=== PATIENT | female | born 1945 | race Caucasian/White ===

== ENCOUNTER 2016-12-03 10:37 | Emergency (ER) | payer MEDICARE, OTHER ==
--- NOTE | 2016-12-03 11:35 | ERNOTE ---
Back Pain ER HPI Time Seen by Provider: 12/03/16 11:14 Source: patient, family Exam Limitations: no limitations Immunizations: IMMUNIZATION HX Immunizations Up to Date Yes History of Influenza Vaccine No Hx Pneumococcal Vaccination No Allergies/Adverse Reactions: Allergies codeine Allergy (Severe, Verified 12/03/16 10:50) Anaphylaxis lidocaine Allergy (Intermediate, Verified 12/03/16 10:50) THROAT SWELLING procaine HCl [From Novocain] Allergy (Intermediate, Verified 12/03/16 10:50) THROAT SWELLING Home Medications: HOME MEDICATIONS traZODone HCL [Desyrel] 100 mg PO HS 07/04/13 [Last Taken 04/14/16 21:00] Albuterol Sulfate [Proair Hfa] 1 puff IH Q6H PRN 01/21/14 [Last Taken Unknown] Venlafaxine HCl [Effexor Xr] 300 mg PO DAILY 01/21/14 [Last Taken 04/15/16] ALPRAZolam [Xanax] 0.25 mg PO BID PRN #45 tablet 04/17/16 [Last Taken Unknown] Cholecalciferol [Vitamin D] 2,000 unit PO DAILY@1200 capsule 04/17/16 [Last Taken Unknown] Clopidogrel Bisulfate [Plavix] 75 mg PO DAILY #90 tablet 04/17/16 [Last Taken Unknown] Losartan/Hydrochlorothiazide [Losartan-Hctz 100-12.5 mg Tab] 1 each PO DAILY # 90 tablet 04/17/16 [Last Taken Unknown] Simvastatin [Zocor] 10 mg PO HS tablet 04/17/16 [Last Taken Unknown] amLODIPine BESYLATE [Norvasc] 10 mg PO DAILY@2100 #90 tablet 04/17/16 [Last Taken Unknown] Aspirin/Calcium Carbonate/Mag [Aspirin Buffered 325 mg Tab] 325 mg PO DAILY [Last Taken Unknown] Pantoprazole Sodium 40 mg PO DAILY #30 tablet. 06/20/16 [Last Taken Unknown] Narrative: PAtient is here for two concerns back pain and headache, she has had both for about a week the headache is intermittent every morning, usually resolves after 1-2 hours, she sometimes takes pain medications, denies any neurological deficits. The back pain is thoracic, denies any unjury, has a remote history of compression fracture - Patient's Past Medical History Patient History - Medical: Anemia, Anxiety, Depression Patient History - Cardiac/Respiratory: Hypertension, Hyperlipidemia, Pneumonia Patient History - Cancer: No Hx of Cancer Patient History - Surgical Procedures: Appendectomy, Back Surgery, Cholecystectomy, Total Knee Replacement, Tubal Ligation Patient History - Other: None - Family History Sister Family History - Medical: Alzheimer's Disease, Dementia Family History - Cardiac/Respiratory: No pertinent hx Mother Family History - Cardiac/Respiratory: COPD Father Family History - Medical: Diabetes Type 2 Family History - Cardiac/Respiratory: Cardiac Arrest, Myocardial Infarction Brothers Family History - Medical: Diabetes Type 1 - Social History Living Situations: home Abuse History: No History of abuse Psych History: Hx of Anxiety, Hx of Depression Alcohol Use: occasionally Drug Use: none - Immunizations Immunizations Up to Date: Yes Hx Pneumococcal Vaccination: No History of Influenza Vaccine: No Physical Exam - Physical Exam General Appearance: Present: wd/wn, alert, no apparent distress, anxious Eye Exam: Normal inspection: bilateral, PERRL: bilateral, EOMI: bilateral Ears, Nose, Throat: Present: normal ENT inspection, hearing grossly normal, normal pharynx Neck: Present: normal inspection, nontender, full range of motion Respiratory: Present: no respiratory distress, normal breath sounds, no accessory muscle use, lungs clear Cardiovascular/Chest: Present: regular rate, rhythm, no murmur Gastrointestinal/Abdominal: Present: nontender, nondistended, soft Back Exam: Present: normal inspection, vertebral tenderness - lower thoracic spine Extremity Exam: Present: normal inspection, normal range of motion Neurological Exam: Present: alert, oriented, normal mood/affect, no motor/ sensory deficits, 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 Vital Signs: Vital Signs 12/03/16 10:46 Temperature 36.4 C L Pulse Rate 78 Respiratory 12 Rate Blood Pressure 155/92 O2 Sat by Pulse 93 Oximetry - X-Ray X-Ray #1 X-Ray: thoracic - old kyphoplasty, DJD, no acute changes Interpretation: Reviewed by me - CT/Ultrasound CT/Ultrasound Narrative: CT head: atrophy, no acute findings - Progress/Reassessment Chief Complaint: Back Pain Progress Note-Subjective: 12/03/16 12:21 discussed results with patient and family, headache better patient now states that she has been under a lot of stress as her brother recently Departure Clinical Impression: Back pain of thoracolumbar region Headache, tension-type Qualifiers: Headache chronicity pattern: episodic headache Intractability: not intractable Qualified Code(s): G44.219 - Episodic tension-type headache, not intractable - Departure Disposition: Home self-care Condition: Good Instructions: Tension Headache, [id number] Additional Instructions: call your doctor for a follow up appointment make sure to bring all your medication bottles to double check what you should be taking Referrals: Corey Walter MD [Primary Care Provider] -
--- OUTSIDE RECORDS SUMMARY | 2016-12-03 11:39 | XMS REPORT | Continuity of Care Document ---
:1945 Author Organization [facility] ([facility]) Address [address] [place] [address] Phone [phone] Care Team Providers Name Role Phone Kvng Morrow Primary Care Provider [phone] Source Comments This disclosure is being made pursuant to the Care Everywhere program, applicable federal and state laws, and may not contain all informaitonavailable regarding this patient.[facility] ([facility]) Active Allergies and Adverse Reactions Allergen Noted Date Severity Reactions Comments Codeine Nausea & Vomiting,Stomach Pain Procaine Upper Airway Edema,Respiratory Distress Current Medications Prescription Sig. Disp. Refills Start Date End Date Status hydrALAZINE 10 mg tablet Take 10 mg by Active mouth 3 times daily. enalapril 20 mg tablet Take 30 mg by Active mouth 2 times daily. simvastatin 10 mg tablet Take 10 mg by Active mouth every evening. atenolol 100 mg tablet Take 100 mg by Active mouth 2 times daily. venlafaxine 150 mg XR Take 150 mg by Active tablet mouth 2 times daily. traZODone 150 mg tablet Take 150 mg by Active mouth at bedtime. albuterol (PROAIR HFA) Use 2 Puffs by 1 Inhaler 03/10/2013 Active 90 mcg/Actuation inhaler inhalation every 6 hours as needed. Indications: BRONCHOSPASM PREVENTION fluticasone 50 use 2 Sprays into 1 Bottle 11 03/10/2013 Active mcg/Actuation nasal the nose daily. 2 spray sprays each nostril daily Indications: ALLERGIC RHINITIS omeprazole 20 mg Take 1 Cap by 30 Cap 0 04/09/2013 Active extended release capsule mouth daily. Indications: duodenitis hydrochlorothiazide 25 Take 25 mg by Active mg tablet mouth daily. naproxen 500 mg tablet Take 500 mg by Active mouth 3 times daily with meals. amLODIPine 5 mg tablet Take 1 Tab by 30 Tab 11 04/28/2013 Active mouth daily. Indications: HYPERTENSION mometasone (ASMANEX) 220 Use 2 Puffs by 2 Inhaler 6 08/13/2013 Active mcg (120 doses) inhaler inhalation 2 times daily. Indications: ASTHMA PREVENTION Active Problems Problem Noted Date Diastolic dysfunction 04/28/2013 Duodenitis 04/10/2013 SOB (shortness of breath) 03/13/2013 Colon polyp 06/20/2012 Other specified disorders of pancreatic internal secretion 02/11/2009 Pain in joint, lower leg 01/12/2009 Ganglion, unspecified 04/08/2008 Painful respiration 04/01/2007 Other specified general medical examination 06/24/2006 Pain in joint, pelvic region and thigh 06/24/2006 Abdominal pain, right upper quadrant 06/24/2006 Unspecified sinusitis (chronic) 02/10/2003 Special screening for malignant neoplasms, colon 08/12/2002 Pre-operative cardiovascular examination 10/15/2000 Preoperative examination, unspecified 10/15/2000 Sarcoidosis 10/15/2000 HYPERTENSION NOS 10/15/2000 Immunizations Name Dates Previously Given Next Due Influenza, PF 08/21/2011 Influenza, unspecified 07/14/2012,08/03/1998,08/13/1995 Pneumococcal, unspecified 10/14/1997 Social History Tobacco Use Types Packs/Day Years Used Date Former Smoker 0.25 3 Quit: 10/14/1971 Smokeless Tobacco: Never Used Tobacco Cessation:Counseling Given: Yes Comments: Last Filed Vital Signs Vital Sign Reading Time Taken Blood Pressure 152/79 04/28/2013 8:49 AM CDT Pulse 55 04/28/2013 8:49 AM CDT Temperature 36.1 C (97 F) 04/09/2013 2:38 PM CDT Respiratory Rate 16 04/09/2013 2:38 PM CDT Height 1.524 m (5') 04/09/2013 11:27 AM CDT Weight 71 kg (156 lb 8.4 oz) 04/28/2013 8:49 AM CDT Body Mass Index 30.57 04/28/2013 8:49 AM CDT Oxygen Saturation 95% 04/28/2013 8:49 AM CDT Plan of Care Health Maintenance Due Date Last Done Comments HCV Screening 1945 Hepatitis B Vaccine (1 of 3 1945 - Primary Series) Tdap Vaccine 01/01/1956 Td Vaccine 1962 Colonoscopy 1994 Mammogram 10/15/2001 10/15/2000 Zoster Vaccine 2004 Osteoporosis Screening (DXA 2009 Bone Density) Pneumococcal Vaccine (1 of 2 2009 - PCV13) Lipid Disorder Screening 01/12/2014 01/12/2009, 04/08/2008, 06/24/2006 Influenza Vaccine: Seasonal 05/14/2016 07/14/2012, Additional history exists (#1) 08/21/2011, 08/03/1998 Results from Last 3 Months Not on file
[2016-12-03 12:28] VITALS: BP 152/84
== END 2016-12-03 12:31 | disposition home or self-care (01) ==
LOC: ER 10:37
DX: M54.6 Pain in thoracic spine (principal); G44.219 Episodic tension-type headache, not intractable; I10 Essential (primary) hypertension; E78.5 Hyperlipidemia, unspecified; F41.8 Other specified anxiety disorders

== ENCOUNTER 2017-03-07 10:05 | Emergency (ER) | payer MEDICARE, MEDICAID ==
--- NOTE | 2017-03-07 11:31 | ERNOTE ---
Lower Extremity HPI - General Lower Extremities Pain: foot: right Time Seen by Provider: 03/07/17 11:10 Source: patient, family Exam Limitations: no limitations - Immun/Allergies/Home Medications Immunizations: IMMUNIZATION HX Immunizations Up to Date Yes History of Influenza Vaccine Yes Hx Pneumococcal Vaccination Yes Allergies/Adverse Reactions: Allergies Allergy/AdvReac Type Severity Reaction Status Date / Time codeine Allergy Severe Anaphylaxis Verified 03/07/17 10:21 lidocaine Allergy Intermediate THROAT Verified 03/07/17 10:21 SWELLING procaine HCl [From Novocain] Allergy Intermediate THROAT Verified 03/07/17 10:21 SWELLING Home Medications: HOME MEDICATIONS traZODone HCL [Desyrel] 100 mg PO HS 07/04/13 [Last Taken 04/14/16 21:00] Albuterol Sulfate [Proair Hfa] 1 puff IH Q6H PRN 01/21/14 [Last Taken Unknown] Venlafaxine HCl [Effexor Xr] 300 mg PO DAILY 01/21/14 [Last Taken 04/15/16] ALPRAZolam [Xanax] 0.25 mg PO BID PRN #45 tablet 04/17/16 [Last Taken Unknown] Cholecalciferol [Vitamin D] 2,000 unit PO DAILY@1200 capsule 04/17/16 [Last Taken Unknown] Clopidogrel Bisulfate [Plavix] 75 mg PO DAILY #90 tablet 04/17/16 [Last Taken Unknown] Losartan/Hydrochlorothiazide [Losartan-Hctz 100-12.5 mg Tab] 1 each PO DAILY # 90 tablet 04/17/16 [Last Taken Unknown] Simvastatin [Zocor] 10 mg PO HS tablet 04/17/16 [Last Taken Unknown] amLODIPine BESYLATE [Norvasc] 10 mg PO DAILY@2100 #90 tablet 04/17/16 [Last Taken Unknown] Aspirin/Calcium Carbonate/Mag [Aspirin Buffered 325 mg Tab] 325 mg PO DAILY [Last Taken Unknown] Sulfamethoxazole/Trimethoprim [Bactrim Ds] 1 tab PO BID #20 tab 03/07/17 [Last Taken Unknown] - History of Present Illness Narrative: Patient is here today because she is concerned about a wound on her right foot. About two weeks ago she stepped on glass in her kitchen and sustained a cut, she has followed up with Dr Turk last week who put her on a "pill that didn't help". She had an MRI done three days ago, she has had increasing pain and drainage. This morning she was seen to have orthotics fit and there was a concern that her foot look infected. 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 Absent: fever ENT: Present: nose congestion. Absent: sore throat Respiratory: Absent: shortness of breath, cough Cardiology: Absent: chest pain Gastrointestinal/Abdominal: Absent: nausea, vomiting, abdominal pain Genitourinary: Present: no symptoms reported Musculoskeletal: Present: See HPI Neurological: Present: headache - slight. Absent: weakness, numbness, tingling - Patient's Past Medical History Patient History - Medical: Anemia, Anxiety, Depression Patient History - Cardiac/Respiratory: Hypertension, Hyperlipidemia, Pneumonia Patient History - Cancer: No Hx of Cancer Patient History - Surgical Procedures: Appendectomy, Back Surgery, Cholecystectomy, Total Knee Replacement, Tubal Ligation Patient History - Other: None LMP (females 10-50): Menopausal - Family History Sister Family History - Medical: Alzheimer's Disease, Dementia Family History - Cardiac/Respiratory: No pertinent hx Mother Family History - Cardiac/Respiratory: COPD Father Family History - Medical: Diabetes Type 2 Family History - Cardiac/Respiratory: Cardiac Arrest, Myocardial Infarction Brothers Family History - Medical: Diabetes Type 1 - Social History Living Situations: home Abuse History: No History of abuse Psych History: Hx of Anxiety, Hx of Depression Smoking Status: Former smoker Alcohol Use: occasionally Drug Use: none - Immunizations Immunizations Up to Date: Yes Hx Pneumococcal Vaccination: Yes History of Influenza Vaccine: Yes Physical Exam - Physical Exam General Appearance: Present: wd/wn, alert, no apparent distress Respiratory: Present: no respiratory distress, normal breath sounds, lungs clear Cardiovascular/Chest: Present: regular rate, rhythm, no murmur Peripheral Pulses: N=norm/S=strong/W=weak/B=bound/A=absent: Dorsalis-pedis (R): Normal Extremity Exam: Present: normal except - - plantar side of right first metatarsal headabout 3mm wound, draining serous fluid, mild surrounding erythema , no lymphangitis, tender to touch, sensation intact Neurological Exam: Present: alert, oriented, normal mood/affect Skin Exam: Present: normal color, warm/dry ED Progress - Results and Orders Patient's Lab Results:: I have reviewed the patient's lab results. - Vital Signs Patient's Vital Signs:: I have reviewed the patient's vital signs. Vital Signs: Vital Signs 03/07/17 10:11 Temperature 35.9 C L Pulse Rate 73 Respiratory 15 Rate Blood Pressure 133/61 O2 Sat by Pulse 99 Oximetry - CT/Ultrasound CT/Ultrasound Narrative: reviewed out patient MRI from 03/04 IMPRESSION: 1. No definite signs of first metatarsal head osteomyelitis. 2. Abnormal marrow signal and articular surface collapse of the second metatarsal head as discussed above. Consider sequela of avascular necrosis versus osteomyelitis. Nonspecific second metatarsophalangeal joint joint effusion as above. Correlate clinically. 3. No definite signs of soft tissue abscess. 4. Additional comments as above. - Progress/Reassessment Chief Complaint: Foot Injury/Pain Progress Note-Subjective: 03/07/17 12:23 per [place] chart patient was on keflex in January, no recent antibiotic use, unable to get hold of Dr Turk or Dr Walter 03/07/17 12:43 discussed results and plan with patient and daughter, most recent wound culture from a couple of years ago showed MRS sensitive to bactrim Departure Clinical Impression: Foot ulcer, right Qualifiers: Non-pressure ulcer stage: unspecified non-pressure ulcer stage Qualified Code(s ): L97.519 - Non-pressure chronic ulcer of other part of right foot with unspecified severity - Departure Disposition: Home self-care Condition: Good Additional Instructions: take over the counter tylenol (325mg) two every 4-6 hours as needed for pain, keep the wound covered and padded, try to stay off your foot as much as possible Referrals: Corey Walter MD [Primary Care Provider] - Airam Turk DPM [Staff Physician] - (as scheduled) Prescriptions: Sulfamethoxazole/Trimethoprim [Bactrim Ds] 1 tab PO BID #20 tab
--- OUTSIDE RECORDS SUMMARY | 2017-03-07 11:39 | XMS REPORT | Continuity of Care Document ---
:1945 Author Organization [facility] ([facility]) Address [address] [place] [address] Phone [phone] Care Team Providers Name Role Phone Kvng Morrow Primary Care Provider [phone] Source Comments This disclosure is being made pursuant to the Care Everywhere program, applicable federal and state laws, and may not contain all informaitonavailable regarding this patient.[facility] ([facility]) Active Allergies and Adverse Reactions Allergen Noted [...] HFA) Use 2 Puffs by 1 Inhaler 11 03/10/2013 Active 90 mcg/Actuation inhaler inhalation every [...]
[2017-03-07 11:41] LABS: Hematocrit 39.7 % (37.0-47.0); Hemoglobin 13.7 gm/dL (12.5-16.0); Mean Cell Volume 84.3 fl (78-100); Mean Corpuscular Hemoglobin 29.1 pg (27-31); Mean Corpuscular Hgb Conc 34.5 g/dl (32-36); Mean Platelet Volume 8.9 fl (6.0-9.5); Neutrophil # 2.9 K/mm3 (1.3-6.0); Platelet Count 279 K/mm3 (150-450); Red Blood Count 4.71 M/mm3 (4.2-5.4); Red Cell Distribution Width 12.6 % (11.5-14.0); White Blood Count 4.6 K/mm3 (4.0-10.5)
[2017-03-07 11:56] LABS: Albumin * 3.6 gm/dl (3.4-5.0); Anion Gap 11.7 mmol/L (6.8-13.8); BUN/Creatinine Ratio 13.3 (9.0-21.6); Bilirubin, Total 0.4 mg/dL (0.0-1.1); CRP 0.5 mg/dL (0.0-0.9); Ca. Corrected For Albumin 9.1 mg/dL (8.4-10.2); Calcium * 9.1 mg/dL (7.9-10.9); Carbon Dioxide 28.1 mmol/L (24-32.6); Potassium 3.8 mmol/L (3.4-4.6); Total Protein 7.3 gm/dL (6.2-8.2)
[2017-03-07] MEDS ORDERED: ACETAMINOPHEN 325 MG TABLET PO ONE (12:43)
[2017-03-07] MEDS ORDERED: ACETAMINOPHEN 325 MG TABLET ONE (12:43)
[2017-03-07 13:05] VITALS: BP 151/88
== END 2017-03-07 12:56 | disposition home or self-care (01) ==
LOC: ER 10:05
DX: L97.519 Non-pressure chronic ulcer of other part of right foot with unspecified severity (principal); F41.9 Anxiety disorder, unspecified; I10 Essential (primary) hypertension; E78.5 Hyperlipidemia, unspecified; F32.9 Major depressive disorder, single episode, unspecified; Z87.891 Personal history of nicotine dependence

== ENCOUNTER 2017-04-13 20:46 | Observation (INO) | payer MEDICARE, MEDICAID ==
[2017-04-13] MEDS ORDERED: VANCOMYCIN HCL 1 GM in DEXTROSE 5 % IN WATER 250 ML IV ONE ×2 (21:11)
[2017-04-13] MEDS ORDERED: MORPHINE SULFATE 4 MG/ML SYRG IV ONE (21:11)
[2017-04-13 21:27] LABS: Hematocrit 37.1 % (37.0-47.0); Hemoglobin 12.8 gm/dL (12.5-16.0); Mean Cell Volume 84.1 fl (78-100); Mean Corpuscular Hgb Conc 34.5 g/dl (32-36); Mean Platelet Volume 8.8 fl (6.0-9.5); Neutrophil # 6.3 K/mm3 (1.3-6.0); Neutrophil % 73.5 % (42-75.0); Platelet Count 256 K/mm3 (150-450); Red Blood Count 4.41 M/mm3 (4.2-5.4); Red Cell Distribution Width 12.6 % (11.5-14.0); White Blood Count 8.5 K/mm3 (4.0-10.5)
[2017-04-13 21:35] LABS: Anion Gap 12.5 mmol/L (6.8-13.8); BUN/Creatinine Ratio 10.1 (9.0-21.6); Carbon Dioxide 26.5 mmol/L (24-32.6); Estimated Creat Clear 27.6
[2017-04-13] MEDS ORDERED: MORPHINE SULFATE 4 MG/ML SYRG ONE (21:36)
[2017-04-13] MEDS: NORMAL SALINE 1,000 ML IV PRN (21:44)
[2017-04-13] MEDS ORDERED: ONDANSETRON HCL/PF 2 MG/ML VIAL ONE (22:35)
--- NOTE | 2017-04-13 22:35 | ERNOTE ---
Lower Extremity HPI - Narrative Date of Service: 04/13/17 - General Lower Extremities Pain: foot: right Time Seen by Provider: 04/13/17 21:10 Source: patient, family Exam Limitations: no limitations - Immun/Allergies/Home Medications Immunizations: IMMUNIZATION HX Immunizations Up to Date Yes History of Influenza Vaccine Yes Hx Pneumococcal Vaccination Yes Allergies/Adverse Reactions: Allergies Allergy/AdvReac Type Severity Reaction Status Date / Time codeine Allergy Severe Anaphylaxis Verified 03/07/17 10:21 lidocaine Allergy Intermediate THROAT Verified 03/07/17 10:21 SWELLING procaine HCl [From Novocain] Allergy Intermediate THROAT Verified 03/07/17 10:21 SWELLING Home Medications: HOME MEDICATIONS Albuterol Sulfate [Proair Hfa] 1 puff IH Q6H PRN 01/21/14 [Last Taken Unknown] Venlafaxine HCl [Effexor Xr] 300 mg PO DAILY 01/21/14 [Last Taken 04/15/16] ALPRAZolam [Xanax] 0.25 mg PO BID PRN #45 tablet 04/17/16 [Last Taken Unknown] Cholecalciferol [Vitamin D] 2,000 unit PO DAILY@1200 capsule 04/17/16 [Last Taken Unknown] Clopidogrel Bisulfate [Plavix] 75 mg PO DAILY #90 tablet 04/17/16 [Last Taken Unknown] Losartan/Hydrochlorothiazide [Losartan-Hctz 100-12.5 mg Tab] 1 each PO DAILY # 90 tablet 04/17/16 [Last Taken Unknown] Simvastatin [Zocor] 10 mg PO HS tablet 04/17/16 [Last Taken Unknown] amLODIPine BESYLATE [Norvasc] 10 mg PO DAILY@2100 #90 tablet 04/17/16 [Last Taken Unknown] Aspirin/Calcium Carbonate/Mag [Aspirin Buffered 325 mg Tab] 325 mg PO DAILY [Last Taken Unknown] Sulfamethoxazole/Trimethoprim [Bactrim Ds] 1 tab PO BID #20 tab 03/07/17 [Last Taken Unknown] HYDROcodone/ACETAMINOPHEN [Lortab 5-325 mg Tablet] 1 each PO Q6H PRN #12 tablet 04/13/17 [Last Taken Unknown] - History of Present Illness Narrative: This is a 71-year-old female with a 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 The patient has had a spot on the base of her right foot which has been open and draining for several months. She has seen her family doctor for this and has been taking Bactrim. The patient states that over the last 24 hours she has noticed a "explosion of redness at" on her foot. She said it is streaking up toward ankle. She says that she is having increased pain. Patient says that this is how her body reacts when she has an infection that is getting out of control. The patient denies nausea vomiting fever chills chest pain shortness of breath or any other somatic complaints Occurred: last week Location of Incident: other - no Method of Injury: Reports: other - states she may have gotten a piece of glass in it several months ago but it hasn't healed since then Associated Symptoms: Reports: none Other Injuries: Reports: none Prior Treament: Reports: treated by physician, other - as been on antibiotics. Review of Systems - Narrative Narrative: The patient has no other somatic symptoms other than those mentioned in the history of present illness. - Review of Systems Constitutional: Present: no symptoms reported EYE: Present: no symptoms reported ENT: Present: no symptoms reported Respiratory: Present: no symptoms reported Cardiology: Present: no symptoms reported Gastrointestinal/Abdominal: Present: no symptoms reported Musculoskeletal: Present: other - redness and swelling to the right foot Skin: Present: See HPI Neurological: Present: no symptoms reported Endocrine: Present: no symptoms reported Hematologic/Lymphatic: Present: no symptoms reported Psych: Present: no symptoms reported All Other Systems: All systems neg except as marked - Patient's Past Medical History Patient History - Medical: Anemia, Anxiety, Depression Patient History - Cardiac/Respiratory: Hypertension, Hyperlipidemia, Pneumonia Patient History - Cancer: No Hx of Cancer Patient History - Surgical Procedures: Appendectomy, Back Surgery, Cholecystectomy, Total Knee Replacement, Tubal Ligation, Other Patient History - Other: None - Family History Sister Family History - Medical: Alzheimer's Disease, Dementia Family History - Cardiac/Respiratory: No pertinent hx Mother Family History - Cardiac/Respiratory: COPD Father Family History - Medical: Diabetes Type 2 Family History - Cardiac/Respiratory: Cardiac Arrest, Myocardial Infarction Brothers Family History - Medical: Diabetes Type 1 - Social History Living Situations: home Abuse History: No History of abuse Psych History: Hx of Anxiety, Hx of Depression Smoking Status: Former smoker Have you smoked in the past 12 months: No Do you dip or chew tobacco: No Alcohol Use: occasionally Drug Use: none - Immunizations Immunizations Up to Date: Yes Hx Pneumococcal Vaccination: Yes History of Influenza Vaccine: Yes Physical Exam - Physical Exam General Appearance: Present: wd/wn, alert, mild distress - mild pain distress Eye Exam: Normal inspection: bilateral Ears, Nose, Throat: Present: normal ENT inspection Neck: Present: normal inspection, nontender Respiratory: Present: no respiratory distress, lungs clear Cardiovascular/Chest: Present: regular rate, rhythm, no murmur Gastrointestinal/Abdominal: Present: normal bowel sounds, nontender Extremity Exam: Present: normal inspection Neurological Exam: Present: alert, oriented Skin Exam: Present: other - the patient has a small ulceration on the base of her right foot. This is on the great toe eminence plantar aspect. There is erythema on the plantar aspect of the foot as well as on the dorsum up towards the proximal tarsal bones. It does not quite across the ankle joint. It is warm. There is no signs of fluctuance or thickening Lymphatic Exam: Present: no adenopathy ED Progress - Date and Time Seen: Date and Time: 04/13/17 23:23 She says that the pain is better after the pain medicine but she is having nausea. Zofran given. She is being assessed by the hospital doctor. I would prefer that she receive antibiotics overnight and be reassessed in the morning however I think sending her home on by mouth antibiotics with the understanding that she would return immediately tomorrow if she is not getting better could work. - Results and Orders Patient's Lab Results:: I have reviewed the patient's lab results. - Vital Signs Patient's Vital Signs:: I have reviewed the patient's vital signs. Vital Signs: Vital Signs 04/13/17 04/13/17 21:07 21:50 Temperature 37.0 C 36.9 C Pulse Rate 95 92 Respiratory 18 16 Rate Blood Pressure 143/86 139/84 O2 Sat by Pulse 98 99 Oximetry - Progress/Reassessment Chief Complaint: Lower Extremity Pain/ Injury Progress Note-Subjective: 04/13/17 23:33 No significant change in the degree of redness. No progression but no improvement Departure Clinical Impression: Cellulitis and abscess of foot Clinical Impression: (Ruled Out): Leg pain - Departure Disposition: [facility] Condition: Good Referrals: Corey Walter MD [Primary Care Provider] - Prescriptions: HYDROcodone/ACETAMINOPHEN [Lortab 5-325 mg Tablet] 1 each PO Q6H PRN #12 tablet PRN Reason: Pain
[2017-04-13] MEDS ORDERED: ONDANSETRON HCL/PF 2 MG/ML VIAL IV ONE (22:41)
--- NOTE | 2017-04-14 00:32 | HP ---
Chief Complaint - Chief Complaint Date of Service: 04/13/17 Time of Service: 23:48 Chief Complaint: "Wound on RT foot, Redness". Source of HPI- Pt; reliable, pt' s daughter, ER Provider. History of Present Illness: Mrs. Fowler is a 71-yr-old [place] pt of Dr. Corey Walter with a PMH of: Anxiety , Depression, Diverticulosis, GERD, GI Bleed, HLD, HTN, Osteoarthritis, Sarcoidodis & TIA. The pt reports that she has had a chronic wound on the bottom of the RT foot for the last 3-4 months and is being followed by Dr. Turk. Today, she noticed that some redness was developing on the top part of the RT foot. She was worried about developing infection that can lead to amputation as her LT foot great toe has been amputated in the past, due to MRSA infection & therefore chose to come to the [facility] ER. She denies fevers and chills. According to the [facility] records, she was seen by Dr. Turk on 02/01/17 for the wound and was noted to have erythema on the dorsal part of the RT foot She was started on Kerflex 500mg BID x 10 days. She was seen again on 02/21/17 and the wound was determined to be stable and she had debridement done. An MRI of the foot was done on 03/04/17 and there was no sign of Osteomyelitis. On , she presented to the [facility] ER with complaints of pain and drainage on the same foot/wound. It was noted to have serous drainage and mild Erythema by the ERP. She was discharged from the ED on bactrim x 10 days as the previous wound culture from the the LT foot 2 yrs ago had shown she had MRSA, which was sensitive to Bactrim. During evaluation at the ED tonight, the CBC and BMP was unremarkable. The X-ray of the foot did not have any findings to suggest Osteomyelitis or gas gangrene. V.S were normal. On physical examination she is alert and in no distress.There is erythema on the the dorsal part of Rt foot which is hot to touch. She denies pain unless she is standing on the extremity.The wound on the plantar aspect has a 3mm opening with minimal purulent/yellow drainage. She will be admitted under observation status in order to reassess if her Cellulitis will respond to parental antibiotic treatment given the already elevated CRP/ESR of:17.8/33. This will also guide the decision to be discharged home or if she will require in-patient admission. - Patient's Past Medical History Patient History - Medical: Anemia, Anxiety, Depression, GERD, Other - Sarcoidosis. Patient History - Cardiac/Respiratory: Hypertension, Hyperlipidemia, Pneumonia Patient History - Cancer: No Hx of Cancer Patient History - Surgical Procedures: Appendectomy, Back Surgery, Cholecystectomy, Total Knee Replacement, Tubal Ligation, Other Patient History - Other: None - Family History Sister Family History - Medical: Alzheimer's Disease, Dementia Family History - Cardiac/Respiratory: No pertinent hx Mother Family History - Cardiac/Respiratory: COPD Father Family History - Medical: Diabetes Type 2 Family History - Cardiac/Respiratory: Cardiac Arrest, Myocardial Infarction Brothers Family History - Medical: Diabetes Type 1 - Social History Living Situations: home Abuse History: No History of abuse Psych History: Hx of Anxiety, Hx of Depression Smoking Status: Former smoker Have you smoked in the past 12 months: No Do you dip or chew tobacco: No Alcohol Use: occasionally Drug Use: none - Immunizations Immunizations Up to Date: Yes Hx Pneumococcal Vaccination: Yes History of Influenza Vaccine: Yes Review Of Systems (GEN) - Review of Systems Generalized/Overall Review: Present: Weakness. Absent: Chills, Fever, Fatigue EENTM: Absent: Eye Pain, Blurred Vision Respiratory: Absent: Cough, Shortness of Breath, Orthopnea Cardiac: Absent: Chest Pain, Edema, Palpitations Abdominal: Present: Nausea. Absent: Vomiting, Hematemesis, Abdominal Pain Genitourinary: Absent: Burning, Itching, Urgency, Frequency Musculoskeletal: Absent: Joint Pain, Back Pain, Joint Swelling Neurological: Present: Headache, Anxiety, Depressed, Emotional Problems, Weakness Skin: Present: Dryness. Absent: Lesions, Bruising Endocrine: Present: Intolerance to Cold, Increased Thirst. Absent: Increased Hunger Misc: All systems neg except as marked Immunizations: IMMUNIZATION HX Immunizations Up to Date Yes History of Influenza Vaccine Yes Hx Pneumococcal Vaccination Yes Allergies/Adverse Reactions: Allergies Allergy/AdvReac Type Severity Reaction Status Date / Time codeine Allergy Severe Anaphylaxis Verified 04/14/17 01:13 lidocaine Allergy Intermediate THROAT Verified 04/14/17 01:13 SWELLING procaine HCl [From Novocain] Allergy Intermediate THROAT Verified 04/14/17 01:13 SWELLING Home Medications: HOME MEDICATIONS Albuterol Sulfate [Proair Hfa] 1 puff IH Q6H PRN 01/21/14 [Last Taken Unknown] Venlafaxine HCl [Effexor Xr] 300 mg PO DAILY 01/21/14 [Last Taken 04/15/16] ALPRAZolam [Xanax] 0.25 mg PO BID PRN #45 tablet 04/17/16 [Last Taken Unknown] Cholecalciferol [Vitamin D] 2,000 unit PO DAILY@1200 capsule 04/17/16 [Last Taken Unknown] Clopidogrel Bisulfate [Plavix] 75 mg PO DAILY #90 tablet 04/17/16 [Last Taken Unknown] Losartan/Hydrochlorothiazide [Losartan-Hctz 100-12.5 mg Tab] 1 each PO DAILY # 90 tablet 04/17/16 [Last Taken Unknown] Simvastatin [Zocor] 10 mg PO HS tablet 04/17/16 [Last Taken Unknown] amLODIPine BESYLATE [Norvasc] 10 mg PO DAILY@2100 #90 tablet 04/17/16 [Last Taken Unknown] Aspirin/Calcium Carbonate/Mag [Aspirin Buffered 325 mg Tab] 325 mg PO DAILY [Last Taken Unknown] Sulfamethoxazole/Trimethoprim [Bactrim Ds] 1 tab PO BID #20 tab 03/07/17 [Last Taken Unknown] HYDROcodone/ACETAMINOPHEN [Lortab 5-325 mg Tablet] 1 each PO Q6H PRN #12 tablet 04/13/17 [Last Taken Unknown] Exam - Exam Vital Signs: Vital Signs - Last Taken Temp 36.8 C 04/13/17 23:31 Pulse 88 04/13/17 23:31 Resp 18 04/13/17 23:31 BP 136/78 04/13/17 23:31 Pulse Ox 95 04/13/17 23:31 Constitutional: Present: Alert, Oriented x3, Cooperative, No distress ENT Exam: Present: normal ENT inspection, hearing grossly normal, dry mucous membranes Eye Exam: bilateral eye: normal inspection, PERRL Neck: Present: full range of motion, supple, normal inspection, trachea midline Back Exam: Present: normal inspection, no CVA tenderness Breasts: Present: Exam deferred Respiratory: Present: lungs clear, no accessory muscle use Cardiovascular/Chest: Present: normal peripheral pulses, regular rate, rhythm, no chest tenderness, no edema Abdomen: Present: Normal bowel sounds, soft, nontender /Rectal: Present: Exam deferred Extremity: Present: normal range of motion, non-tender, normal inspection Skin Exam: Present: no cyanosis, other - Erythema on the dorsal part on RT foot. There is a 3mm opening on the the plantar aspect of the RT foot, which small amount of purulent drainage. Neurologic: Present: no motor/sensory deficits, alert, oriented x 3, depressed affect Appearance: Present: appropriate appearance, appropriate insight Eye contact: Present: cooperative, good eye contact, normal speech Diagnostic Studies: Laboratory Results WBC 8.5 K/mm3 (4.0-10.5) 04/13/17 21:20 RBC 4.41 M/mm3 (4.2-5.4) 04/13/17 21:20 Hgb 12.8 gm/dL (12.5-16.0) 04/13/17 21:20 Hct 37.1 % (37.0-47.0) 04/13/17 21:20 MCV 84.1 fl (78-100) 04/13/17 21:20 MCH 29.0 pg (27-31) 04/13/17 21:20 MCHC 34.5 g/dl (32-36) 04/13/17 21:20 RDW 12.6 % (11.5-14.0) 04/13/17 21:20 Plt Count 256 K/mm3 (150-450) 04/13/17 21:20 MPV 8.8 fl (6.0-9.5) 04/13/17 21:20 Immature Gran % (Auto) 0.40 % (0.001-0.429) 04/13/17 21:20 Immature Gran # (Auto) 0.03 K/mm3 (0.000-0.0310) 04/13/17 21:20 Neutrophils % 73.5 % (42-75.0) 04/13/17 21:20 Lymphocytes % 14.1 % (20-51) L 04/13/17 21:20 Monocytes % 9.9 % (0.0-9) H 04/13/17 21:20 Eosinophils % 1.4 % (0.0-3.0) 04/13/17 21:20 Basophils % 0.7 % (0.0-1.0) 04/13/17 21:20 Nucleated RBC % 0.0 k/mm3 (0-1) 04/13/17 21:20 Neutrophils # 6.3 K/mm3 (1.3-6.0) H 04/13/17 21:20 Lymphocytes # 1.2 k/mm3 (1.5-3.5) L 04/13/17 21:20 Monocytes # 0.8 k/mm3 (0.0-1.0) 04/13/17 21:20 Eosinophils # 0.1 k/mm3 (0.0-0.7) 04/13/17 21:20 Absolute Basophils 0.1 k/mm3 (0.0-0.1) 04/13/17 21:20 ESR 33 mm/hr (0-15) H 04/13/17 21:20 Sodium 136 mmol/L (132-142) 04/13/17 21:20 Plasma Sodium 136 mmol/L (130-142) 04/13/17 21:20 Potassium 4.0 mmol/L (3.4-4.6) 04/13/17 21:20 Chloride 101 mmol/L (97-106) 04/13/17 21:20 Carbon Dioxide 26.5 mmol/L (24-32.6) 04/13/17 21:20 Anion Gap 12.5 mmol/L (6.8-13.8) 04/13/17 21:20 BUN 14 mg/dL (3-23) 04/13/17 21:20 Creatinine 1.39 mg/dL (0.4-1.4) D 04/13/17 21:20 Est GFR (Non-Af Amer) 40 mL/min (60-130) L D 04/13/17 21:20 BUN/Creatinine Ratio 10.1 (9.0-21.6) 04/13/17 21:20 Random Glucose 119 mg/dL (70-110) H 04/13/17 21:20 Lactic Acid, Venous 0.8 mmol/L (0.4-1.9) 04/13/17 21:20 Calcium 9.0 mg/dL (7.9-10.9) 04/13/17 21:20 C-Reactive Prot, Quant 17.8 mg/dL (0.0-0.9) H 04/13/17 21:20 Assessment/Plan - Assessment/Plan (1) Cellulitis Assessment: Pt presented with complaints of Erythema and hotness on the RT foot which has a chronic/non-healing wound on the the plantar aspect. The wound was noted to have surrounding hardening skin/tissue but has a 3mm opening with purulent drainage. She has had prior outpatient treatment for similar symptoms on 02/01 with Kerflex and 03/07 with Bactrim. Even though her CBC & BMP was unremarkable and the X-ray lacked any acute findings suggestive of Osteomyelitis or gas gangrene, she was found to have elevated inflammatory marker labs involving CRP/ ESR; 17.8/33. It's reasonable to admit her under observation for re-assessment 12-24hrs of parental antibiotic treatment in order to determine if she can be discharged home on Oral Antibiotics or if she will require full/inpatient hospital admission. She received IV Vancomycin at the ED. Will switch treatment to IV Clindamycin 600mg q 8 hrs and to see if Erythema improves. If it does, she may be discharged on Oral form, & Will make arrangements for her to F/U with podiatry Dr. Turk next week. The wound culture was collected today which will further guide duration and type of antibiotic therapy. Problem: Acute (2) Hyperlipidemia Problem: Chronic (3) Hypertension Problem: Chronic (4) GERD (gastroesophageal reflux disease) Problem: Chronic (5) Depression Problem: Chronic (6) Anxiety Problem: Chronic
[2017-04-14] MEDS: CLINDAMYCIN PHOSPHATE 600 MG in DEXTROSE 5 % IN WATER 100 ML IV SCH ×4 (00:49→08:18)
[2017-04-14] MEDS ORDERED: NORMAL SALINE 250 ML IV PRN (00:54)
[2017-04-14] MEDS ORDERED: ALBUTEROL SULFATE 200 PUFF INHALER IH PRN (01:30)
[2017-04-14] MEDS ORDERED: ALPRAZolam 0.25 MG TABLET PO PRN (01:30)
[2017-04-14] MEDS: NORMAL SALINE 1,000 ML IV PRN (06:21)
[2017-04-14] MEDS ORDERED: ALBUTEROL SULFATE 2.5 MG/3 ML VIAL.NEB IH PRN (07:11)
[2017-04-14] MEDS ORDERED: ASPIRIN 325 MG TABLET.DR PO SCH (09:00)
[2017-04-14] MEDS ORDERED: CLOPIDOGREL BISULFATE 75 MG TABLET PO SCH (09:00)
[2017-04-14] MEDS ORDERED: HYDROCHLOROTHIAZIDE 25 MG TABLET PO SCH (09:00)
[2017-04-14] MEDS ORDERED: LOSARTAN POTASSIUM 50 MG TABLET PO SCH (09:00)
[2017-04-14] MEDS ORDERED: VENLAFAXINE HCL 150 MG CAP.SR.24H PO SCH (09:00)
[2017-04-14] MEDS ORDERED: CHOLECALCIFEROL 1,000 UNIT CAPSULE PO SCH (12:00)
[2017-04-14 13:42] LABS: Hematocrit 33.8 % (37.0-47.0); Hemoglobin 11.5 gm/dL (12.5-16.0); Mean Corpuscular Hemoglobin 29.3 pg (27-31); Mean Platelet Volume 8.7 fl (6.0-9.5); Neutrophil # 4.5 K/mm3 (1.3-6.0); Neutrophil % 72.5 % (42-75.0); Platelet Count 204 K/mm3 (150-450); Red Blood Count 3.93 M/mm3 (4.2-5.4); Red Cell Distribution Width 12.7 % (11.5-14.0); White Blood Count 6.3 K/mm3 (4.0-10.5)
[2017-04-14 14:32] VITALS: BP 136/73
--- NOTE | 2017-04-14 14:59 | DS ---
(1) Cellulitis Diagnosis(s): Ashley is a 71 yo female admitted with cellulitis and recent antibiotic use of bactrim. She was admitted to observation and started on IV clinidamycin. She improved with IV clindamycin and was transitioned to oral clindamycin and discharged to home. Problem: Acute Procedures Performed: none Discharge Disposition: Home self care Disposition: Home self-care Condition: Good Discharge Activity: Activity as tolerated Discharge Diet: General/regular food Referrals: Airam Turk DPM [Staff Physician] - One Week Corey Walter MD [Primary Care Provider] - One Week Problem Oriented Discharge Instructions to Patient/Family: Cellulitis, Adult, [id number] Additional Patient Instructions (free text): F/U with Dr. Turk on 04/19/17 at 10:45 AM. Complete Home Medications List: Complete Home Medication List: Albuterol Sulfate [Proair Hfa] 1 puff IH Q6H PRN 01/21/14 Venlafaxine HCl [Effexor Xr] 150 mg PO DAILY 01/21/14 ALPRAZolam [Xanax] 0.25 mg PO BID PRN #45 tablet 04/17/16 Clopidogrel Bisulfate [Plavix] 75 mg PO DAILY #90 tablet 04/17/16 Simvastatin [Zocor] 10 mg PO HS tablet 04/17/16 amLODIPine BESYLATE [Norvasc] 10 mg PO DAILY@2100 #90 tablet 04/17/16 HYDROcodone/ACETAMINOPHEN [Lortab 5-325 mg Tablet] 1 each PO Q6H PRN #12 tablet 04/13/17 Acetaminophen [Tylenol] 650 mg PO Q6H PRN 04/25/17 Albuterol Sulfate/Ipratropium [Duoneb 2.5-0.5MG/3ML Soln] 3 ml IH QID 04/25/17 Cholecalciferol (Vitamin D3) [Vitamin D] 2,000 unit PO DAILY 04/25/17 Fluticasone Propionate [Flonase] 1 spray NS DAILY PRN 04/25/17 LORazepam [Ativan] 0.5 mg PO HS 04/25/17 Losartan Potassium [Cozaar] 100 mg PO HS 04/25/17 Potassium Chloride [K-Dur] 20 meq PO DAILY 04/25/17 Venlafaxine HCl [Effexor Xr] 75 mg PO DAILY 04/25/17 HYDROcodone/ACETAMINOPHEN [[place] 5-325 Tablet] 1 - 2 tab PO Q4H PRN #60 tab
[2017-04-14] MEDS ORDERED: amLODIPine BESYLATE 10 MG TABLET PO SCH (21:00)
[2017-04-14] MEDS ORDERED: SIMVASTATIN 10 MG TABLET PO SCH (21:00)
[2017-04-14] MEDS ORDERED: VANCOMYCIN HCL 1 GM in DEXTROSE 5 % IN WATER 250 ML IV SCH ×2 (21:00)
== END 2017-04-14 15:30 | disposition home or self-care (01) ==
LOC: ER 20:46 → MS 23:32
PROVIDERS: ADMIT Nurse Practitioner; ATTEND Internal Medicine
DX: L03.115 Cellulitis of right lower limb (principal); B95.62 Methicillin resistant Staphylococcus aureus infection as the cause of diseases classified elsewhere; I10 Essential (primary) hypertension; E78.5 Hyperlipidemia, unspecified; F41.8 Other specified anxiety disorders; D86.9 Sarcoidosis, unspecified; Z87.891 Personal history of nicotine dependence; K21.9 Gastro-esophageal reflux disease without esophagitis; Z89.412 Acquired absence of left great toe; Z89.411 Acquired absence of right great toe
CPT/HCPCS: 36415; 73630; 80048; 83605; 85025; 85652; 86140; 87040; 87070; 87077; 87081; 87186; 96365; 96366; 96367; 96375; 99284; G0378; J2405

== ENCOUNTER 2017-04-29 06:30 | Day surgery (SDC) | payer MEDICARE, MEDICAID ==
[~2017-04-29 06:30] MED LIST: RINGERS SOLUTION,LACTATED 1,000 ML IV PRN; ceFAZolin SODIUM 2 GM in DEXTROSE 5 % IN WATER 50 ML IV PRN
[2017-04-29] MEDS ORDERED: BUPIVACAINE HCL 50 ML VIAL IJ ONE (08:10)
[2017-04-29 10:46] VITALS: BP 104/58
== END 2017-04-29 06:31 | disposition home or self-care (01) ==
LOC: AMB 06:30
PROVIDERS: ATTEND Student in an Organized Health Care Education/Training Program
PROC: 0QBQ0ZZ Excision of Right Toe Phalanx, Open Approach (ICD-10-PCS; 2017-04-29)
PROC: 0QBN0ZZ Excision of Right Metatarsal, Open Approach (ICD-10-PCS; principal; 2017-04-29 08:00)
DX: L97.519 Non-pressure chronic ulcer of other part of right foot with unspecified severity (principal); M20.41 Other hammer toe(s) (acquired), right foot; M86.671 Other chronic osteomyelitis, right ankle and foot; I10 Essential (primary) hypertension; E78.5 Hyperlipidemia, unspecified; K21.9 Gastro-esophageal reflux disease without esophagitis; M19.90 Unspecified osteoarthritis, unspecified site; F41.8 Other specified anxiety disorders; Z87.891 Personal history of nicotine dependence; Z68.29 Body mass index [BMI] 29.0-29.9, adult

== ENCOUNTER 2017-09-07 14:26 | Emergency (ER) | payer MEDICARE, MEDICAID ==
--- NOTE | 2017-09-07 15:03 | ERNOTE ---
Back Pain ER HPI Time Seen by Provider: 09/07/17 14:53 Source: patient Exam Limitations: no limitations Immunizations: IMMUNIZATION HX Immunizations Up to Date Yes History of Influenza Vaccine Yes Hx Pneumococcal Vaccination Yes Allergies/Adverse Reactions: Allergies codeine Allergy (Severe, Verified 09/07/17 14:39) Anaphylaxis lidocaine Allergy (Intermediate, Verified 09/07/17 14:39) THROAT SWELLING procaine HCl [From Novocain] Allergy (Intermediate, Verified 09/07/17 14:39) THROAT SWELLING Home Medications: HOME MEDICATIONS Venlafaxine HCl [Effexor Xr] 150 mg PO DAILY 01/21/14 [Last Taken 04/15/16] Clopidogrel Bisulfate [Plavix] 75 mg PO DAILY #90 tablet 04/17/16 [Last Taken Unknown] Simvastatin [Zocor] 10 mg PO HS tablet 04/17/16 [Last Taken Unknown] Cholecalciferol (Vitamin D3) [Vitamin D] 2,000 unit PO DAILY 04/25/17 [Last Taken Unknown] Losartan Potassium [Cozaar] 100 mg PO DAILY 04/25/17 [Last Taken Unknown] Venlafaxine HCl [Effexor Xr] 75 mg PO DAILY 04/25/17 [Last Taken Unknown] Amlodipine Besylate 10 mg PO HS 09/07/17 [Last Taken Unknown] Aspirin 81 mg PO DAILY 09/07/17 [Last Taken Unknown] HYDROcodone/ACETAMINOPHEN [[place] 5-325] 1 each PO Q4H PRN #20 tablet 09/07/17 [ Last Taken Unknown] Ipratropium/Albuterol Sulfate [Combivent Respimat Inhal [place]] 1 puff IH BID [Last Taken Unknown] hydrOXYzine HCL [Atarax] 25 mg PO HS 09/07/17 [Last Taken Unknown] Narrative: Patient started to have back pain that radiates around both side to her lower chest, pain is worse with breathing and moving, she has a slight cough, slightly more short of breath than baseline. She denies any injury, has a history of COPD and CVA, no heart disease Date (Duration): 09/04/17 Timing: Reports: constant Quality/Severity: Reports: moderate Location of pain: Reports: mid back Activities at Onset: Reports: none Recent Injury?: Reports: no Modifying Factors - (Worsens): Reports: cough/deep breaths Associated Symptoms: Denies: fever/chills, problems urinating, difficulty walking Prior Treament: Reports: recently seen. Denies: similar symptoms before Review of Systems - Review of Systems Constitutional: Absent: recent illness, fever ENT: Absent: nose congestion, sore throat Respiratory: Present: See HPI, shortness of breath, cough Cardiology: Present: See HPI. Absent: chest pain Gastrointestinal/Abdominal: Absent: nausea, vomiting, diarrhea Genitourinary: Present: no symptoms reported Musculoskeletal: Present: See HPI, back pain Skin: Absent: rash Neurological: Absent: headache, weakness, numbness - Patient's Past Medical History Patient History - Medical: Anemia, Anxiety, Depression, GERD, Other Patient History - Cardiac/Respiratory: COPD, Hypertension, Hyperlipidemia, Pneumonia, TIA Patient History - Cancer: No Hx of Cancer Patient History - Surgical Procedures: Appendectomy, Back Surgery, Cholecystectomy, Total Knee Replacement, Tubal Ligation, Other Patient History - Other: None - Family History Sister Family History - Medical: Alzheimer's Disease, Dementia Family History - Cardiac/Respiratory: No pertinent hx Family History - Cancer: Other Mother Family History - Medical: , Diabetes Type 2 Family History - Cardiac/Respiratory: COPD Family History - Cancer:  Father Family History - Medical: Diabetes Type 2 Family History - Cardiac/Respiratory: Cardiac Arrest, Myocardial Infarction Family History - Cancer: No pertinent family hx Grandfather-Paternal Family History - Medical: Diabetes Type 1 Family History - Cardiac/Respiratory: No pertinent hx Family History - Cancer: No pertinent family hx Brothers Family History - Medical: Diabetes Type 1 Family History - Cardiac/Respiratory: No pertinent hx Family History - Cancer: No pertinent family hx - Social History Abuse History: No History of abuse Psych History: Hx of Anxiety, Hx of Depression, Current tx/ever been on anti- depressants or anti-anxiety meds Smoking Status: Former smoker - Immunizations Immunizations Up to Date: Yes Hx Pneumococcal Vaccination: Yes History of Influenza Vaccine: Yes Physical Exam - Physical Exam General Appearance: Present: wd/wn, alert, mild distress Respiratory: Present: no respiratory distress, lungs clear, decreased breath sounds Cardiovascular/Chest: Present: regular rate, rhythm, no murmur Gastrointestinal/Abdominal: Present: nontender, nondistended, soft Back Exam: Present: normal inspection, vertebral tenderness - mid thoracic spine Extremity Exam: Present: no edema Neurological Exam: Present: alert, oriented, normal mood/affect Skin Exam: Present: normal color, warm/dry ED Progress - Results and Orders Patient's Lab Results:: I have reviewed the patient's lab results. - Vital Signs Patient's Vital Signs:: I have reviewed the patient's vital signs. Vital Signs: Vital Signs 09/07/17 14:36 Temperature 36.7 C Pulse Rate 84 Respiratory 18 Rate Blood Pressure 179/111 O2 Sat by Pulse 98 Oximetry - EKG EKG: NSR, nonspecific ST T wave changes, other - no change from 03/2017 EKG read: Interp. by me - X-Ray X-Ray #1 X-Ray: chest - chronic, no acute changes Interpretation: Interp. by me X-Ray #2 X-Ray: thoracic - Kyphoplasty T11, DDD, no definite fracture Interpretation: Interp. by me - Progress/Reassessment Chief Complaint: Back Pain Progress Note-Subjective: 09/07/17 15:26 patient back from Xray, requesting pain meds, had vicodin in the past on review of the chart patient was seen in 11/2016 for back pain, Xray showed old kyphoplasty 09/07/17 16:27 pain better after vicodin Departure Clinical Impression: Back pain, thoracic Qualifiers: Chronicity: acute Back pain laterality: midline Qualified Code(s): M54.6 - Pain in thoracic spine - Departure Disposition: Home self-care Condition: Good Instructions: Back Pain, Adult, [id number] Additional Instructions: take the pain medication as instructed take a laxative like senakot with it to avoid constipation if your pain doesn't improve over the next week call your doctor for followup Referrals: Corey Walter MD [Primary Care Provider] - Prescriptions: HYDROcodone/ACETAMINOPHEN [[place] 5-325] 1 each PO Q4H PRN #20 tablet PRN Reason: Pain
[2017-09-07 15:17] LABS: Hemoglobin 13.5 gm/dL (12.5-16.0); Mean Corpuscular Hemoglobin 28.8 pg (27-31); Mean Corpuscular Hgb Conc 35.5 g/dl (32-36); Mean Platelet Volume 8.8 fl (6.0-9.5); Neutrophil # 7.7 K/mm3 (1.3-6.0); Platelet Count 236 K/mm3 (150-450); Red Blood Count 4.69 M/mm3 (4.2-5.4); Red Cell Distribution Width 13.2 % (11.5-14.0); White Blood Count 9.6 K/mm3 (4.0-10.5)
[2017-09-07] MEDS ORDERED: HYDROcodone/ACETAMINOPHEN 1 EACH TABLET PO ONE (15:26)
[2017-09-07 15:27] LABS: Prothrombin Time (Patient) 10.1 Seconds (9.0-11.0)
[2017-09-07] MEDS ORDERED: HYDROcodone/ACETAMINOPHEN 1 EACH TABLET ONE (15:27)
[2017-09-07 15:28] LABS: INR 1.01 INR (0.90-1.10); Partial Thrombolplastin Time 26.7 Seconds (24-32)
[2017-09-07 15:33] LABS: Troponin I Less than 0.017 ng/ml (0.00-0.10)
[2017-09-07 15:39] LABS: ALT 29 U/L (19-67); AST 24 U/L (0-48); Albumin * 3.7 gm/dl (3.4-5.0); Alkaline Phosphatase * 123 U/L (50-170); Anion Gap 14.9 mmol/L (6.8-13.8); BUN/Creatinine Ratio 12.1 (9.0-21.6); Bilirubin, Total 0.5 mg/dL (0.0-1.1); Blood Urea Nitrogen 12 mg/dL (3-23); Ca. Corrected For Albumin 8.8 mg/dL (8.4-10.2); Calcium * 8.9 mg/dL (7.9-10.9); Carbon Dioxide 24.3 mmol/L (24-32.6); Chloride 102 mmol/L (97-106); Glucose * 105 mg/dL (70-110); Potassium 3.2 mmol/L (3.4-4.6); Sodium 138 mmol/L (132-142); Total Protein 7.4 gm/dL (6.2-8.2)
[2017-09-07 16:17] VITALS: BP 157/78
== END 2017-09-07 16:33 | disposition home or self-care (01) ==
LOC: ER 14:26
DX: M54.6 Pain in thoracic spine (principal); Z86.73 Personal history of transient ischemic attack (TIA), and cerebral infarction without residual deficits; Z87.891 Personal history of nicotine dependence; E78.5 Hyperlipidemia, unspecified; F32.9 Major depressive disorder, single episode, unspecified; F41.9 Anxiety disorder, unspecified; J44.9 Chronic obstructive pulmonary disease, unspecified; I10 Essential (primary) hypertension; R06.02 Shortness of breath

== ENCOUNTER 2018-12-21 15:35 | Observation (INO) ==
[2018-12-21] MEDS ORDERED: ONDANSETRON HCL/PF 2 MG/ML VIAL IV ONE (15:50)
[2018-12-21] MEDS ORDERED: PANTOPRAZOLE SODIUM 40 MG/100 ML PIGGYBACK IV ONE (15:50)
--- NOTE | 2018-12-21 16:02 | ERNOTE ---
GI Bleeding/Rectal Pain ER Presenting Symptoms: vomiting blood Time Seen by Provider: 12/21/18 15:42 Source: patient, family Exam Limitations: no limitations Immunizations: IMMUNIZATION HX Immunizations Up to Date Yes History of Influenza Vaccine Yes Hx Pneumococcal Vaccination No Allergies/Adverse Reactions: Allergies codeine Allergy (Severe, Verified 12/21/18 15:41) Anaphylaxis lidocaine Allergy (Intermediate, Verified 12/21/18 15:41) THROAT SWELLING procaine HCl [From Novocain] Allergy (Intermediate, Verified 12/21/18 15:41) THROAT SWELLING penicillin V [From Pen-Vee K] Allergy (Verified 12/21/18 15:41) Hives Home Medications: HOME MEDICATIONS Cholecalciferol (Vitamin D3) [Vitamin D] 2,000 unit PO DAILY 04/25/17 [Last Taken Unknown] atorvastatin 10 mg tablet 10 mg PO HS #90 tab 04/29/18 [Last Taken Unknown] venlafaxine ER 150 mg capsule,extended release 24 hr 150 mg PO DAILY #90 cap 05/16/18 [Last Taken Unknown] venlafaxine ER 75 mg capsule,extended release 24 hr 75 mg PO DAILY #90 cap 05/16/18 [Last Taken Unknown] ipratropium 20 mcg-albuterol 100 mcg/actuation mist for inhalation 1 inh IH QID #4 g 07/08/18 [Last Taken Unknown] amlodipine 10 mg tablet 10 mg PO DAILY #30 tab 08/08/18 [Last Taken Unknown] losartan 100 mg tablet 100 mg PO DAILY #30 tab 08/20/18 [Last Taken Unknown] Clindamycin HCl [Cleocin HCl] 300 mg PO TID 10 Days #30 cap 12/16/18 [Last Taken Unknown] Narrative: Patient states that she has had 2 episodes of fairly extensive vomiting of blood, the last one being just several hours prior to arrival. Patient complains of mild abdominal pain worse being along the left side of the abdomen. Timing: constant Quality/Severity: Present: mild, moderate Nausea/Vomiting: Present: blood Abdominal Pain: Present: other - Left side of abdomen Rectal Bleeding: Absent: without stool Associated Symptoms: Denies: maroon stools, black stools Review of Systems - Review of Systems Constitutional: Present: See HPI EYE: Present: no symptoms reported ENT: Present: no symptoms reported Respiratory: Present: no symptoms reported Cardiology: Present: no symptoms reported Gastrointestinal/Abdominal: Present: See HPI, nausea, vomiting Genitourinary: Present: no symptoms reported Musculoskeletal: Present: no symptoms reported Skin: Present: no symptoms reported Neurological: Present: no symptoms reported Endocrine: Present: no symptoms reported Hematologic/Lymphatic: Present: no symptoms reported Psych: Present: no symptoms reported Medical History (Last Reviewed 12/16/18 @ 11:24 by Aftab Ramon MD) Dysdiadochokinesis on examination (Acute) Senile osteoporosis (Chronic) Hearing loss (Chronic) Anxiety Chronic kidney disease Depressed GERD (gastroesophageal reflux disease) Hyperlipidemia Hypertension Osteoarthritis Surgical History: Surgical History (Last Reviewed 12/16/18 @ 11:24 by Aftab Ramon MD) History of appendectomy 7th grade History of carpal tunnel release Onset Date: 04/20/14 Dr. Shannon, decompression R median and ulnar nerve at wrist History of colonoscopy Onset Date: 07/21/12 Dr. Barbosa, with EGD, follow up 10 yrs History of esophagogastroduodenoscopy (EGD) Onset Date: 06/19/16 Dr. 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 History of knee replacement procedure of right knee Onset Date: 10/27/13 History of tubal ligation Age 25 Hx of cholecystectomy Age 25 Previous back surgery Onset Date: 2016 Family History: Family History (Last Reviewed 12/16/18 @ 11:11 by Juan José Little RN) Brother Diabetes 7 brothers DM, one CVA (cerebral vascular accident) Father Diabetes Mother Cancer skin cancer Brother CVA (cerebral vascular accident), Onset Age: 69 Sister Dementia Social History: Preferred Language Wallisian Smoking Status Former smoker Abuse History No History of abuse Psych History Hx of Anxiety,Hx of Depression,Currently on Meds Alcohol Use none Drug Use none (Last Updated 10/23/18 @ 10:07 by Airam Turk DPM) No Social History Section defined Physical Exam - Physical Exam General Appearance: Present: wd/wn, alert, moderate distress Head Exam: Present: normal inspection, no evidence of injury Eye Exam: Normal inspection: bilateral, PERRL: bilateral Ears, Nose, Throat: Present: normal ENT inspection, H, normal pharynx Neck: Present: normal inspection, nontender Respiratory: Present: no respiratory distress, normal breath sounds, no accessory muscle use, chest nontender, lungs clear Cardiovascular/Chest: Present: regular rate, rhythm, no murmur, normal peripheral pulses Gastrointestinal/Abdominal: Present: normal bowel sounds, nondistended, soft, no organomegaly, tenderness - Mild to moderate on the left side of the abdomen Rectal Exam: Present: deferred Pelvic Exam: Present: deferred Back Exam: Present: normal inspection, normal range of motion Extremity Exam: Present: normal inspection, non-tender, no edema, normal range of motion Neurological Exam: Present: alert, oriented, normal mood/affect Skin Exam: Present: normal color, warm/dry Lymphatic Exam: Present: no adenopathy Progress - Results and Orders Patient's Lab Results:: I have reviewed the patient's lab results. - Vital Signs Patient's Vital Signs:: I have reviewed the patient's vital signs. Vital Signs: Vital Signs 12/21/18 15:37 Temperature 35.4 C L Pulse Rate 89 Respiratory Rate 12 Blood Pressure 104/62 O2 Sat by Pulse Oximetry 97 - EKG EKG #1 EKG: NSR EKG read: Reviewed by me - X-Ray X-Ray #1 X-Ray: chest Interpretation: Reviewed by me X-Ray #2 X-Ray: abdomen Interpretation: Reviewed by me - Progress/Reassessment Chief Complaint: GI Bleed Plan - Plan Plan: Unclear etiology for the GI bleeding which is painless. Patient will be admitted to a monitored bed with a surgical consult for possible EGD. Dr. Tillman has agreed to accept care for the admission. Departure Clinical Impression: GI bleeding Qualifiers: GI bleed type/associated pathology: gastritis Gastritis type: acute gastritis Qualified Code(s): K29.01 - Acute gastritis with bleeding - Departure Disposition: Still a patient Condition: Fair
[2018-12-21 16:10] LABS: Hemoglobin 12.3 gm/dL (12.5-16.0); Mean Corpuscular Hemoglobin 28.6 pg (27-31); Mean Corpuscular Hgb Conc 33.2 g/dl (32-36); Mean Platelet Volume 9.1 fl (8-12.5); Neutrophil # 8.3 K/mm3 (1.3-6.0); Neutrophil % 76.3 % (42-75.0); Platelet Count 334 K/mm3 (150-450); Red Cell Distribution Width 13.3 % (11.5-14.0); White Blood Count 10.9 K/mm3 (4.0-10.5)
[2018-12-21 16:20] LABS: Prothrombin Time (Patient) 11.8 Seconds (9.1-10.7)
[2018-12-21 16:21] LABS: INR 1.2 INR (0.92-1.08); Partial Thrombolplastin Time 21.2 Seconds (24-32)
[2018-12-21 16:27] LABS: ALT 98 U/L (19-67); AST 85 U/L (0-48); Albumin * 3.1 gm/dl (3.4-5.0); Alkaline Phosphatase * 91 U/L (50-170); BUN/Creatinine Ratio 17.4 (9.0-21.6); Bilirubin, Total 0.4 mg/dL (0.0-1.1); Blood Urea Nitrogen 29 mg/dL (3-23); Ca. Corrected For Albumin 8.8 mg/dL (8.4-10.2); Calcium * 8.4 mg/dL (7.9-10.9); Carbon Dioxide 26.8 mmol/L (24-32.6); Chloride 107 mmol/L (97-106); Glucose * 130 mg/dL (70-110); Magnesium 1.8 mg/dL (1.2-2.8); Potassium 2.8 mmol/L (3.4-4.6); Sodium 142 mmol/L (132-142); Total Protein 6.3 gm/dL (6.2-8.2); Troponin I 0.024 ng/mL (0.00-0.10)
[2018-12-21] MEDS ORDERED: PROCHLORPERAZINE EDISYLATE 5 MG/ML VIAL IV ONE (16:36)
[2018-12-21] MEDS ORDERED: NORMAL SALINE 1,000 ML IV ONE (16:40)
--- NOTE | 2018-12-21 18:35 | CONS ---
[facility] - General Date of Service: 12/21/18 Narrative: GI bleeding Source: patient Exam Limitations: no limitations, other - Poor historian - History of Present Illness Initial Comments: Ashley is a very pleasant 72-year-old female who was admitted for a GI bleed. She has had diarrhea twice today and it has been yellow in color. Her ER record states that she is taking Plavix. The patient is uncertain if she is taking Plavix or clopidogrel. She has a remote history of TIAs. She has a history of an EGD and colonoscopy in 2011. She also has a history of an EGD and June 2016 which showed gastritis. She currently denies any abdominal pain. She previously coughed up blood today. She is holding a blue bag and states she feels nauseated. She denies taking any other blood thinners, but is a very poor historian and is uncertain if she even takes Plavix. She also came to the emergency room on 12/16/2018 for an upper respiratory infection. She does not smoke or have COPD. Timing/Duration: 24 hours Severity: moderate Modifying Factors - (Worsens): Reports: other - None Modifying Factors - (Improves): Reports: other - None Associated Symptoms: cough, nausea, vomiting Allergies/Adverse Reactions: Allergies codeine Allergy (Severe, Verified 12/21/18 17:21) Anaphylaxis lidocaine Allergy (Intermediate, Verified 12/21/18 17:21) THROAT SWELLING procaine HCl [From Novocain] Allergy (Intermediate, Verified 12/21/18 17:21) THROAT SWELLING penicillin V [From Pen-Vee K] Allergy (Verified 12/21/18 17:21) Hives Home Medications: Home Medications Medication Instructions Recorded Last Taken Cholecalciferol (Vitamin D3) 2,000 unit PO DAILY 04/25/17 Unknown [Vitamin D] atorvastatin 10 mg tablet 10 mg PO HS #90 tab 04/29/18 Unknown venlafaxine ER 75 mg 75 mg PO DAILY #90 cap 05/16/18 Unknown capsule,extended release 24 hr ipratropium 20 mcg-albuterol 100 1 inh IH QID #4 g 07/08/18 Unknown mcg/actuation mist for inhalation amlodipine 10 mg tablet 10 mg PO DAILY #30 tab 08/08/18 Unknown losartan 100 mg tablet 100 mg PO DAILY #30 tab 08/20/18 Unknown Clindamycin HCl [Cleocin HCl] 300 mg PO TID 10 Days #30 cap 12/16/18 Unknown Procedures Amputation of toe (08/23/14) Excision of Right Metatarsal, Open Approach (04/29/17) Excision of Right Toe Phalanx, Open Approach (04/29/17) Excision of Stomach, Via Natural or Artificial Opening Endoscopic, Diagnostic (06/18/16) Other peripheral nerve or ganglion decompression or lysis of adhesions (04/20/14) Packing of Nasal Region using Packing Material (05/02/16) Release of carpal tunnel (04/20/14) Total knee replacement (10/27/13) EGD June 2016 EGD and colonoscopy 2011 Medications - Medications Current Medications: Current Medications Sodium Chloride (Sodium Chloride 0.9%) 1,000 mls @ 125 mls/hr IV .Q8H ONE Stop: 12/22/18 00:39 Last Admin: 12/21/18 16:48 Dose: 125 mls/hr Documented by: Possibly home Plavix Review of Systems - Review of Systems Generalized/Overall Review: Present: Malaise EENTM: Present: No Symptoms Reported Respiratory: Present: Cough Cardiac: Present: No Symptoms Reported Abdominal: Present: Nausea, Vomiting, Hematemesis, Diarrhea. Absent: Abdominal Pain, Constipation Genitourinary: Present: No Symptoms Reported Musculoskeletal: Present: No Symptoms Reported Neurological: Present: No Symptoms Reported Skin: Present: No Symptoms Reported Endocrine: Present: No Symptoms Reported Physical Examination - Exam Vital Signs: Vital Signs - Last Taken Temp 36.0 C 12/21/18 17:11 Pulse 67 12/21/18 17:11 Resp 16 12/21/18 17:11 BP 101/66 12/21/18 17:11 Pulse Ox 91 L 12/21/18 17:11 O2 Oxygen Delivery Method Room Air Constitutional: Present: Alert, Oriented x3, Cooperative ENT Exam: Present: hearing grossly normal Neck: Present: supple Respiratory: Present: no accessory muscle use, rhonchi Cardiovascular/Chest: Present: regular rate, rhythm Abdomen: Present: soft, nontender /Rectal: Present: Exam deferred Extremity: Present: normal range of motion Skin Exam: Present: normal color Neurologic: Present: statistical clerk advertising II-XII nml as tested Appearance: Present: appropriate appearance Eye contact: Present: cooperative, good eye contact Thoughts: Present: normal thought pattern, other - Poor historian - Results and Findings: Lab/Microbiology results last 24 hrs: Abnormal/Pending Laboratory Last 24 HRS 12/21/18 12/21/18 12/21/18 16:03 16:03 16:03 WBC 10.9 H Hgb 12.3 L Immature Gran % (Auto) 0.50 H Immature Gran # (Auto) 0.06 H Neutrophils % 76.3 H Lymphocytes % 15.7 L Neutrophils # 8.3 H PT 11.8 H INR (Anticoag Therapy) 1.20 H PTT (Bree) 21.2 L Potassium 2.8 L D Chloride 107 H BUN 29 H D Creatinine 1.67 H D Est GFR (Non-Af Amer) 32 L D Random Glucose 130 H AST 85 H ALT 98 H Albumin 3.1 L - Assessments/Findings (1) GI bleeding Problem: Acute Qualifiers: GI bleed type/associated pathology: gastritis Gastritis type: acute gastritis Qualified Code(s): K29.01 - Acute gastritis with bleeding (2) Upper GI bleed Problem: Acute Plan - Plan Plan: EGD tomorrow NG now continue to monitor Protonix Avoid blood thinners Appreciate medical management
[2018-12-21] MEDS ORDERED: ONDANSETRON HCL/PF 2 MG/ML VIAL IV PRN (19:14)
--- NOTE | 2018-12-21 19:15 | HP ---
Chief Complaint - Chief Complaint Date of Service: 12/21/18 Time of Service: 19:15 Chief Complaint: Nausea, vomiting blood History of Present Illness: Ashley is a 72 yo female that presented to the [facility] ER after two episodes of red bloody vomit. She reports over the past week her appetite has been decreasing and the last 48 hours has been worsening nausea. Today the nausea worsened to the point of vomiting two episodes, both of which had bright red blood. She reports she has not had anything to eat since yesterday. She reports having a bleeding stomach two years ago after taking naprosyn, but she has not been taking that, aspirin, or other NSAIDs. Chart review does show she was prescribed plavix on 11/12/18 that she is unsure if she has been taking. Pharmacy is currently closed at this time to verify. She thinks she did take Plavix in the past for TIAs, but she has not had one of these for a few years and therefore does not think she has needed the plavix. She denies abdominal pain or change in stool. She reports last week she was diagnosed with strep throat and was on clindamycin for treatment. She reports her throat symptoms improved with the antibiotics. She denies any recent chest pain, shortness of breath, headaches, or neurological change. Medical History (Last Updated 12/22/18 @ 07:51 by Ritesh Tillman DO) Dysdiadochokinesis on examination (Acute) Senile osteoporosis (Chronic) Hearing loss (Chronic) TIA (transient ischemic attack) Anxiety Chronic kidney disease Depressed GERD (gastroesophageal reflux disease) Hyperlipidemia Hypertension Osteoarthritis Surgical History: Surgical History (Last Reviewed 12/21/18 @ 17:20 by Katty Cardozo RN) History of appendectomy 7th grade History of carpal tunnel release Onset Date: 04/20/14 Dr. Shannon, decompression R median and ulnar nerve at wrist History of colonoscopy Onset Date: 07/21/12 Dr. Barbosa, with EGD, follow up 10 yrs History of esophagogastroduodenoscopy (EGD) Onset Date: 06/19/16 Dr. 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 Smoking Status Former smoker Have you smoked in the past 12 No months Abuse History No History of abuse Psych History Hx of Anxiety,Hx of Depression,Currently on Meds Alcohol Use none Drug Use none (Last Updated 10/23/18 @ 10:07 by Airam Turk DPM) No Social History Section defined Review Of Systems (GEN) - Review of Systems Generalized/Overall Review: Present: Chills, Fatigue. Absent: Weakness, Fever, Diaphoresis EENTM: Present: No Symptoms Reported Respiratory: Present: Wheezing. Absent: Cough, Shortness of Breath Cardiac: Absent: Chest Pain, Edema, Palpitations Abdominal: Present: Nausea, Vomiting, Hematemesis. Absent: Abdominal Pain, Constipation, Diarrhea, Melena, Bright blood from rectum Genitourinary: Present: No Symptoms Reported Musculoskeletal: Present: No Symptoms Reported Neurological: Present: No Symptoms Reported Skin: Present: No Symptoms Reported Endocrine: Present: No Symptoms Reported Immunizations: IMMUNIZATION HX Immunizations Up to Date Yes History of Influenza Vaccine Yes Hx Pneumococcal Vaccination No Allergies/Adverse Reactions: Allergies Allergy/AdvReac Type Severity Reaction Status Date / Time codeine Allergy Severe Anaphylaxis Verified 12/21/18 17:21 lidocaine Allergy Intermediate THROAT Verified 12/21/18 17:21 SWELLING procaine HCl [From Novocain] Allergy Intermediate THROAT Verified 12/21/18 17:21 SWELLING penicillin V [From Pen-Vee K] Allergy Hives Verified 12/21/18 17:21 Home Medications: HOME MEDICATIONS Cholecalciferol (Vitamin D3) [Vitamin D] 2,000 unit PO DAILY 04/25/17 [Last Taken Unknown] atorvastatin 10 mg tablet 10 mg PO HS #90 tab 04/29/18 [Last Taken Unknown] venlafaxine ER 75 mg capsule,extended release 24 hr 75 mg PO DAILY #90 cap 05/16/18 [Last Taken Unknown] ipratropium 20 mcg-albuterol 100 mcg/actuation mist for inhalation 1 inh IH QID #4 g 07/08/18 [Last Taken Unknown] amlodipine 10 mg tablet 10 mg PO DAILY #30 tab 08/08/18 [Last Taken Unknown] losartan 100 mg tablet 100 mg PO DAILY #30 tab 08/20/18 [Last Taken Unknown] Clindamycin HCl [Cleocin HCl] 300 mg PO TID 10 Days #30 cap 12/16/18 [Last Taken Unknown] Exam - Exam Vital Signs: Vital Signs - Last Taken Temp 36.0 C 12/21/18 17:11 Pulse 67 12/21/18 17:11 Resp 16 12/21/18 17:11 BP 101/66 12/21/18 17:11 Pulse Ox 91 L 12/21/18 17:11 Constitutional: Present: Alert, Oriented x3, Cooperative ENT Exam: Present: hearing grossly normal Eye Exam: bilateral eye: normal inspection Respiratory: Present: wheezing - end-exhalation Cardiovascular/Chest: Present: regular rate, rhythm, no edema, no murmur Peripheral Pulses: radial (R): 2+, radial (L): 2+ Abdomen: Present: Normal bowel sounds, soft, nontender, nondistended, no rebound tenderness Extremity: Present: normal inspection Skin Exam: Present: normal color, warm/dry, no cyanosis Lymphatic: Present: no adenopathy Appearance: Present: appropriate appearance, appropriate insight Eye contact: Present: cooperative, good eye contact, normal speech Thoughts: Present: normal thought pattern, no apparent hallucination Diagnostic Studies: Abnormal Lab Results 12/21/18 12/21/18 12/21/18 Range/Units 16:03 16:03 16:03 WBC 10.9 H (4.0-10.5) K/mm3 Hgb 12.3 L (12.5-16.0) gm/dL Immature Gran % (Auto) 0.50 H (0.001-0.429) % Immature Gran # (Auto) 0.06 H (0.000-0.0310) K/mm3 Neutrophils % 76.3 H (42-75.0) % Lymphocytes % 15.7 L (20-51) % Neutrophils # 8.3 H (1.3-6.0) K/mm3 PT 11.8 H (9.1-10.7) Seconds INR (Anticoag Therapy) 1.20 H (0.92-1.08) INR PTT (Bree) 21.2 L (24-32) Seconds Potassium 2.8 L D (3.4-4.6) mmol/L Chloride 107 H (97-106) mmol/L BUN 29 H D (3-23) mg/dL Creatinine 1.67 H D (0.4-1.4) mg/dL Est GFR (Non-Af Amer) 32 L D (60-130) mL/min Random Glucose 130 H (70-110) mg/dL AST 85 H (0-48) U/L ALT 98 H (19-67) U/L Albumin 3.1 L (3.4-5.0) gm/dl Laboratory Results WBC 10.9 K/mm3 (4.0-10.5) H 12/21/18 16:03 RBC 4.30 M/mm3 (4.2-5.4) 12/21/18 16:03 Hgb 12.3 gm/dL (12.5-16.0) L 12/21/18 16:03 Hct 37.0 % (37.0-47.0) 12/21/18 16:03 MCV 86.0 fl (78-100) 12/21/18 16:03 MCH 28.6 pg (27-31) 12/21/18 16:03 MCHC 33.2 g/dl (32-36) 12/21/18 16:03 RDW 13.3 % (11.5-14.0) 12/21/18 16:03 Plt Count 334 K/mm3 (150-450) 12/21/18 16:03 MPV 9.1 fl (8-12.5) 12/21/18 16:03 Immature Gran % (Auto) 0.50 % (0.001-0.429) H 12/21/18 16:03 Immature Gran # (Auto) 0.06 K/mm3 (0.000-0.0310) H 12/21/18 16:03 Neutrophils % 76.3 % (42-75.0) H 12/21/18 16:03 Lymphocytes % 15.7 % (20-51) L 12/21/18 16:03 Monocytes % 7.0 % (0.0-9) 12/21/18 16:03 Eosinophils % 0.2 % (0.0-3.0) 12/21/18 16:03 Basophils % 0.3 % (0.0-1.0) 12/21/18 16:03 Nucleated RBC % 0.0 k/mm3 (0-1) 12/21/18 16:03 Neutrophils # 8.3 K/mm3 (1.3-6.0) H 12/21/18 16:03 Lymphocytes # 1.71 k/mm3 (1.5-3.5) 12/21/18 16:03 Monocytes # 0.8 k/mm3 (0.0-1.0) 12/21/18 16:03 Eosinophils # 0.0 k/mm3 (0.0-0.7) 12/21/18 16:03 Absolute Basophils 0.0 k/mm3 (0.0-0.1) 12/21/18 16:03 PT 11.8 Seconds (9.1-10.7) H 12/21/18 16:03 INR (Anticoag Therapy) 1.20 INR (0.92-1.08) H 12/21/18 16:03 PTT (Bree) 21.2 Seconds (24-32) L 12/21/18 16:03 Sodium 142 mmol/L (132-142) 12/21/18 16:03 Plasma Sodium 142 mmol/L (130-142) 12/21/18 16:03 Potassium 2.8 mmol/L (3.4-4.6) L D 12/21/18 16:03 Chloride 107 mmol/L (97-106) H 12/21/18 16:03 Carbon Dioxide 26.8 mmol/L (24-32.6) 12/21/18 16:03 Anion Gap 11.0 mmol/L (6.8-13.8) 12/21/18 16:03 BUN 29 mg/dL (3-23) H D 12/21/18 16:03 Creatinine 1.67 mg/dL (0.4-1.4) H D 12/21/18 16:03 Est GFR (Non-Af Amer) 32 mL/min (60-130) L D 12/21/18 16:03 BUN/Creatinine Ratio 17.4 (9.0-21.6) 12/21/18 16:03 Random Glucose 130 mg/dL (70-110) H 12/21/18 16:03 Calcium 8.4 mg/dL (7.9-10.9) 12/21/18 16:03 Calcium Adj for Albumin 8.8 mg/dL (8.4-10.2) 12/21/18 16:03 Magnesium 1.8 mg/dL (1.2-2.8) 12/21/18 16:03 Total Bilirubin 0.4 mg/dL (0.0-1.1) 12/21/18 16:03 AST 85 U/L (0-48) H 12/21/18 16:03 ALT 98 U/L (19-67) H 12/21/18 16:03 Alkaline Phosphatase 91 U/L (50-170) 12/21/18 16:03 Troponin I 0.024 ng/mL (0.00-0.10) 12/21/18 16:03 Total Protein 6.3 gm/dL (6.2-8.2) 12/21/18 16:03 Albumin 3.1 gm/dl (3.4-5.0) L 12/21/18 16:03 Stool Occult Blood Negative 12/21/18 Unknown Ethyl Alcohol Less than 3.0 mg/dL (0.0-10.0) 12/21/18 16:03 Assessment/Plan - Assessment/Plan (1) Upper GI bleed Assessment: Ashley is a 72 yo female with Upper GI bleed. I suspect secondary to plavix, although she cannot confirm to taking this recently. She will be made NPO, given IV fluids, IV protonix 40mg q12hr, and will consult general surgery. Her vitals are normal and her hemoglobin is 12.3 on initial labwork. Hemoccult stool is negative indicating Upper GI bleed is likely early. She will likely need EGD and I feels she is medically stable for this procedure. Will admit to observation at this time, but may need to admit to inpatient if hemoglobin continues to drop if further treatment and potential for blood transfusion is needed. Problem: Acute
[2018-12-21] MEDS: POTASSIUM CHLORIDE 20 MEQ in DEXTROSE 5%-0.5 NORMAL SALINE 990 ML IV SCH (20:48)
[2018-12-21 22:20] LABS: Hematocrit 34.6 % (37.0-47.0); Hemoglobin 11.3 gm/dL (12.5-16.0); Mean Cell Volume 87.2 fl (78-100); Mean Corpuscular Hemoglobin 28.5 pg (27-31); Mean Corpuscular Hgb Conc 32.7 g/dl (32-36); Mean Platelet Volume 9.4 fl (8-12.5); Platelet Count 283 K/mm3 (150-450); Red Blood Count 3.97 M/mm3 (4.2-5.4); Red Cell Distribution Width 13.2 % (11.5-14.0); White Blood Count 8.7 K/mm3 (4.0-10.5)
[2018-12-22] MEDS: PANTOPRAZOLE SODIUM 40 MG in NORMAL SALINE 100 ML IV SCH ×2 (03:51→17:01)
[2018-12-22 05:02] LABS: Hematocrit 32.5 % (37.0-47.0); Hemoglobin 10.8 gm/dL (12.5-16.0); Mean Cell Volume 86.4 fl (78-100); Mean Corpuscular Hemoglobin 28.7 pg (27-31); Mean Corpuscular Hgb Conc 33.2 g/dl (32-36); Mean Platelet Volume 9.3 fl (8-12.5); Neutrophil % 67.6 % (42-75.0); Platelet Count 267 K/mm3 (150-450); Red Blood Count 3.76 M/mm3 (4.2-5.4); Red Cell Distribution Width 13.3 % (11.5-14.0); White Blood Count 7.4 K/mm3 (4.0-10.5)
[2018-12-22 05:15] LABS: Albumin * 2.8 gm/dl (3.4-5.0); BUN/Creatinine Ratio 44.4 (9.0-21.6); Bilirubin, Total 0.3 mg/dL (0.0-1.1); Ca. Corrected For Albumin 8.7 mg/dL (8.4-10.2); Calcium * 8.1 mg/dL (7.9-10.9); Carbon Dioxide 25.5 mmol/L (24-32.6); Potassium 3.5 mmol/L (3.4-4.6); Total Protein 5.8 gm/dL (6.2-8.2)
--- NOTE | 2018-12-22 09:48 | PN ---
Dictated Progress Note - Date and Time Seen: Date: 12/22/18 Time: 09:47 - Progress Note Narrative: Feeling better today, denies abd pain. Denies further stools. No n/v. Vital Signs - Last Taken Temp 36.8 C 12/22/18 06:00 Pulse 76 12/22/18 06:00 Resp 18 12/22/18 06:00 BP 116/62 12/22/18 06:00 Pulse Ox 98 12/22/18 06:00 Abnormal/Pending Laboratory Last 24 HRS 12/22/18 12/22/18 12/21/18 05:00 05:00 22:10 WBC RBC 3.76 L 3.97 L Hgb 10.8 L 11.3 L Hct 32.5 L 34.6 L Immature Gran % (Auto) Immature Gran # (Auto) Neutrophils % Lymphocytes % Neutrophils # PT INR (Anticoag Therapy) PTT (Bree) Sodium 143 H Plasma Sodium 143 H Potassium Chloride 110 H BUN 56 H D Creatinine Est GFR (Non-Af Amer) 44 L D BUN/Creatinine Ratio 44.4 H Random Glucose AST 58 H ALT 82 H Total Protein 5.8 L Albumin 2.8 L 12/21/18 12/21/18 12/21/18 16:03 16:03 16:03 WBC 10.9 H RBC Hgb 12.3 L Hct Immature Gran % (Auto) 0.50 H Immature Gran # (Auto) 0.06 H Neutrophils % 76.3 H Lymphocytes % 15.7 L Neutrophils # 8.3 H PT 11.8 H INR (Anticoag Therapy) 1.20 H PTT (Bree) 21.2 L Sodium Plasma Sodium Potassium 2.8 L D Chloride 107 H BUN 29 H D Creatinine 1.67 H D Est GFR (Non-Af Amer) 32 L D BUN/Creatinine Ratio Random Glucose 130 H AST 85 H ALT 98 H Total Protein Albumin 3.1 L NAD nonlabored respirations RRR abd soft, non dist, non tender NG min outpt Imp: GI bleed likely on plavix for hx of TIA bloody NG output Plan: EGD this afternoon protonix NG appreciate medical mangement
[2018-12-22] MEDS: POTASSIUM CHLORIDE 20 MEQ in DEXTROSE 5%-0.5 NORMAL SALINE 990 ML IV SCH (11:50)
[2018-12-22 11:54] LABS: Hematocrit 32.4 % (37.0-47.0); Hemoglobin 10.8 gm/dL (12.5-16.0); Mean Cell Volume 86.6 fl (78-100); Mean Corpuscular Hemoglobin 28.9 pg (27-31); Mean Corpuscular Hgb Conc 33.3 g/dl (32-36); Mean Platelet Volume 9.1 fl (8-12.5); Platelet Count 258 K/mm3 (150-450); Red Blood Count 3.74 M/mm3 (4.2-5.4); Red Cell Distribution Width 13.4 % (11.5-14.0); White Blood Count 6.9 K/mm3 (4.0-10.5)
--- NOTE | 2018-12-22 13:17 | PN ---
Subjective - Date and Time Seen Date: 12/22/18 Time: 12:40 Subjective Narrative: Mrs. Fowler is donig ok thismorning. She denies abdominal pain or nausea. She is prepared for EGD this afternoon. She has coffee ground blood in the NG tube to low intermittent gomco suction. VSS. HRRR L-CTA. Abd. Good bowel sounds. Soft and non tender. Stool OB is neg. Hb has dropped from 12.5 on adm. to 10.8 this morning. Other lab is ok. Objective - Review of Systems Generalized/Overall Review: Reports: Weakness EENTM: Reports: No Symptoms Reported Respiratory: Reports: No Symptoms Reported Cardiac: Reports: No Symptoms Reported Abdominal: Reports: Vomiting, Hematemesis Genitourinary Symptoms: Reports: No Symptoms Reported Musculoskeletal Complaints: Reports: No Symptoms Reported Neurological: Reports: No Symptoms Reported Skin: Reports: No Symptoms Reported Endocrine: Reports: No Symptoms Reported Misc: All systems neg except as marked - Vitals Vitals: Last Vital Signs Temp 36.4 C 12/22/18 10:40 Pulse 99 12/22/18 10:40 Resp 20 12/22/18 10:40 BP 163/95 H 12/22/18 10:40 Pulse Ox 98 12/22/18 10:40 - Abnormal Lab Findings Abnormal Lab Findings: Abnormal Lab Results 12/21/18 12/21/18 12/21/18 Range/Units 16:03 16:03 16:03 WBC 10.9 H (4.0-10.5) K/mm3 RBC (4.2-5.4) M/mm3 Hgb 12.3 L (12.5-16.0) gm/dL Hct (37.0-47.0) % Immature Gran % (Auto) 0.50 H (0.001-0.429) % Immature Gran # (Auto) 0.06 H (0.000-0.0310) K/mm3 Neutrophils % 76.3 H (42-75.0) % Lymphocytes % 15.7 L (20-51) % Neutrophils # 8.3 H (1.3-6.0) K/mm3 PT 11.8 H (9.1-10.7) Seconds INR (Anticoag Therapy) 1.20 H (0.92-1.08) INR PTT (Bree) 21.2 L (24-32) Seconds Sodium (132-142) mmol/L Plasma Sodium (130-142) mmol/L Potassium 2.8 L D (3.4-4.6) mmol/L Chloride 107 H (97-106) mmol/L BUN 29 H D (3-23) mg/dL Creatinine 1.67 H D (0.4-1.4) mg/dL Est GFR (Non-Af Amer) 32 L D (60-130) mL/min BUN/Creatinine Ratio (9.0-21.6) Random Glucose 130 H (70-110) mg/dL AST 85 H (0-48) U/L ALT 98 H (19-67) U/L Total Protein (6.2-8.2) gm/dL Albumin 3.1 L (3.4-5.0) gm/dl 12/21/18 12/22/18 12/22/18 Range/Units 22:10 05:00 05:00 WBC (4.0-10.5) K/mm3 RBC 3.97 L 3.76 L (4.2-5.4) M/mm3 Hgb 11.3 L 10.8 L (12.5-16.0) gm/dL Hct 34.6 L 32.5 L (37.0-47.0) % Immature Gran % (Auto) (0.001-0.429) % Immature Gran # (Auto) (0.000-0.0310) K/mm3 Neutrophils % (42-75.0) % Lymphocytes % (20-51) % Neutrophils # (1.3-6.0) K/mm3 PT (9.1-10.7) Seconds INR (Anticoag Therapy) (0.92-1.08) INR PTT (Bree) (24-32) Seconds Sodium 143 H (132-142) mmol/L Plasma Sodium 143 H (130-142) mmol/L Potassium (3.4-4.6) mmol/L Chloride 110 H (97-106) mmol/L BUN 56 H D (3-23) mg/dL Creatinine (0.4-1.4) mg/dL Est GFR (Non-Af Amer) 44 L D (60-130) mL/min BUN/Creatinine Ratio 44.4 H (9.0-21.6) Random Glucose (70-110) mg/dL AST 58 H (0-48) U/L ALT 82 H (19-67) U/L Total Protein 5.8 L (6.2-8.2) gm/dL Albumin 2.8 L (3.4-5.0) gm/dl 12/22/18 Range/Units 11:50 WBC (4.0-10.5) K/mm3 RBC 3.74 L (4.2-5.4) M/mm3 Hgb 10.8 L (12.5-16.0) gm/dL Hct 32.4 L (37.0-47.0) % Immature Gran % (Auto) (0.001-0.429) % Immature Gran # (Auto) (0.000-0.0310) K/mm3 Neutrophils % (42-75.0) % Lymphocytes % (20-51) % Neutrophils # (1.3-6.0) K/mm3 PT (9.1-10.7) Seconds INR (Anticoag Therapy) (0.92-1.08) INR PTT (Bree) (24-32) Seconds Sodium (132-142) mmol/L Plasma Sodium (130-142) mmol/L Potassium (3.4-4.6) mmol/L Chloride (97-106) mmol/L BUN (3-23) mg/dL Creatinine (0.4-1.4) mg/dL Est GFR (Non-Af Amer) (60-130) mL/min BUN/Creatinine Ratio (9.0-21.6) Random Glucose (70-110) mg/dL AST (0-48) U/L ALT (19-67) U/L Total Protein (6.2-8.2) gm/dL Albumin (3.4-5.0) gm/dl - Exam Constitutional: Present: Alert, Oriented x3, Cooperative, Well developed, Well nourished, Mild distress ENT Exam: Present: normal ENT inspection, hearing grossly normal, pharynx normal, TMs normal Neck: Present: non-tender, full range of motion, supple, normal inspection, tra giacomo midline, limited range of motion Breasts: Present: Exam deferred Respiratory: Present: chest non-tender, lungs clear, normal breath sounds, no re spiratory distress, no accessory muscle use Cardiovascular/Chest: Present: normal peripheral pulses, regular rate, rhythm, no chest tenderness, no edema, no gallop, no JVD, no murmur, no rub Abdomen: Present: Normal bowel sounds, soft, nondistended, tender - mid epigastrium /Rectal: Present: Exam deferred Extremity: Present: normal range of motion Skin Exam: Present: pallor Lymphatic: Present: no adenopathy 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 Ashley is medically cleared for the anticipated EGD today. 2. Reevaluate for admission status after the EGD. 3. If she converts to an inpt. status then repeat morning Hemogram. - Problems/Diagnosis (1) Upper GI bleed Problem: Acute (2) Anemia due to acute blood loss Problem: Acute
--- NOTE | 2018-12-22 14:19 | ANES ---
Anesthesia Pre Procedure Eval Vitals/Labs: Last Vital Signs Temp 36.4 C 12/22/18 10:40 Pulse 99 12/22/18 10:40 Resp 20 12/22/18 10:40 BP 163/95 H 12/22/18 10:40 Pulse Ox 98 12/22/18 10:40 HOME MEDICATIONS Cholecalciferol (Vitamin D3) [Vitamin D] 2,000 unit PO DAILY 04/25/17 [Last Taken Unknown] atorvastatin 10 mg tablet 10 mg PO HS #90 tab 04/29/18 [Last Taken Unknown] venlafaxine ER 75 mg capsule,extended release 24 hr 75 mg PO DAILY #90 cap 05/16/18 [Last Taken Unknown] ipratropium 20 mcg-albuterol 100 mcg/actuation mist for inhalation 1 inh IH QID #4 g 07/08/18 [Last Taken Unknown] amlodipine 10 mg tablet 10 mg PO DAILY #30 tab 08/08/18 [Last Taken Unknown] losartan 100 mg tablet 100 mg PO DAILY #30 tab 08/20/18 [Last Taken Unknown] Clindamycin HCl [Cleocin HCl] 300 mg PO TID 10 Days #30 cap 12/16/18 [Last Taken Unknown] Allergies/Adverse Reactions: Allergies Allergy/AdvReac Type Severity Reaction Status Date / Time codeine Allergy Severe Anaphylaxis Verified 12/21/18 17:21 lidocaine Allergy Intermediate THROAT Verified 12/21/18 17:21 SWELLING procaine HCl [From Novocain] Allergy Intermediate THROAT Verified 12/21/18 17:21 SWELLING penicillin V [From Pen-Vee K] Allergy Hives Verified 12/21/18 17:21 - Planned Procedure Planned Procedure: GI Bleed Medication List Reviewed:: Yes Allergies Verified: Yes Medical History (Last Reviewed 12/22/18 @ 14:12 by Kvng Cross CRNA) Dysdiadochokinesis on examination (Acute) Senile osteoporosis (Chronic) Hearing loss (Chronic) TIA (transient ischemic attack) Anxiety Chronic kidney disease Depressed GERD (gastroesophageal reflux disease) Hyperlipidemia Hypertension Osteoarthritis Surgical History (Last Reviewed 12/22/18 @ 14:13 by Kvng Cross CRNA) History of appendectomy 7th grade History of carpal tunnel release Onset Date: 04/20/14 Dr. Shannon, decompression R median and ulnar nerve at wrist History of colonoscopy Onset Date: 07/21/12 Dr. Barbosa, with EGD, follow up 10 yrs History of esophagogastroduodenoscopy (EGD) Onset Date: 06/19/16 Dr. 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 History of knee replacement procedure of right knee Onset Date: 10/27/13 History of tubal ligation Age 25 Hx of cholecystectomy Age 25 Previous back surgery Onset Date: 2016 Family History (Last Reviewed 12/22/18 @ 14:14 by Kvng Cross CRNA) Brother Diabetes 7 brothers DM, one CVA (cerebral vascular accident) Father Diabetes Mother Cancer skin cancer Brother CVA (cerebral vascular accident), Onset Age: 69 Sister Dementia - Family Anesthesia History Family History:: no untoward family reactions to anesthesia, no familial bleeding tendencies, no family history of clotting disorders, no family history of premature - Airway/Neck/Teeth Denture Type: Full upper, Partial upper Neck Exam: full range of motion Mallampatti Score: 3 - small os Thyromental (T-M) distance: > 6 cm Mandibulo Hyoid distance: > 3 cm - Respiratory Respiratory History: COPD Respiratory Physical: rhonchi, wheezing Smoking Status: Former smoker Sleep Apnea currently treated: No Sleep Apnea by current assessment: No - Cardiovascular Cardiac History: CVA/stroke - TIAs, no apparrent residual, hypertension, hyperlipidemia Tolerate Activity: Fair Heart Sounds: S1 & S2, Regular - Anesthesia Assessment and Plan ASA Class: PS, III Anesthesia Type Plan: MAC Planned difficult intubation/equipment available: No
[2018-12-22] MEDS ORDERED: RINGER'S SOLUTION,LACTATED 1,000 ML IV PRN (14:40)
--- NOTE | 2018-12-22 15:43 | ANES ---
Post Anesthesia Assessment - Vital Signs Vitals: Last Vital Signs Temp 36.7 C 12/22/18 15:12 Pulse 73 12/22/18 15:12 Resp 16 12/22/18 15:12 BP 113/58 12/22/18 15:12 Pulse Ox 97 12/22/18 15:12 Airway Patency: Normal - Mental Status Level Of Consciousness: Awake - Pain Level Pain Score: 0 - N/V Assessment Nausea/Vomiting Presence: None Dehydration:: No
--- NOTE | 2018-12-22 15:43 | ANES ---
Post Anesthesia Discharge - Transfer of Care Transfer of Care handoff given to nurse: Yes - Discharge from PACU Discharge from PACU when meets criteria: Yes - Discharge to ASU Discharge to ASU-no complications/pt stable: Yes
--- NOTE | 2018-12-22 15:51 | OR ---
Operative Report - Dictated Report Narrative: Date of Service: 12/22/18 Procedure: EGD with biopsy Pre-procedure diagnosis: GI bleed Post-procedure diagnosis: Resolved upper GI bleeding Surgeon: Dr. Maria Elena Ferrer Anesthesia: MAC Indication for procedure: Ashley is a pleasant 72-year-old female who has a li regine upper GI bleed. Description of procedure: After appropriate informed consent was obtained, patient was taken to the endoscopy suite placed in the left lateral decubitus position. Monitors were applied, appropriate sedation was achieved. A lubricated gastroscope was inserted and advanced into the second portion of the duodenum. The patient already had an NG tube in. The scope was slowly withdrawn, the duodenum appeared normal. The scope was withdrawn to the antrum. An antral biopsy was taken. A biopsy for Laila was also taken. The scope was retroflexed, the stomach had dark blood present, and no signs of active bleeding. No sites where an ulcer could be seen were the source of the bleeding could be visualized. The bleeding appeared to be coming previously from the stomach, I did not see any blood in the duodenum. Scope was slowly withdrawn to the GE junction, the Z line appeared normal. The excess air was suctioned and the scope was slowly removed. The NG tube was removed. Complications: none Specimens to pathology: antral biopsy Estimated blood loss: minimal Disposition: NG tube was removed. I discussed the patient with Dr. Tillman. I believe that the upper GI bleeding has resolved.
[2018-12-23] MEDS: POTASSIUM CHLORIDE 20 MEQ in DEXTROSE 5%-0.5 NORMAL SALINE 990 ML IV SCH (03:25)
[2018-12-23] MEDS: PANTOPRAZOLE SODIUM 40 MG in NORMAL SALINE 100 ML IV SCH ×2 (04:20→15:50)
[2018-12-23 05:47] LABS: Hematocrit 30.4 % (37.0-47.0); Hemoglobin 9.8 gm/dL (12.5-16.0); Mean Cell Volume 88.6 fl (78-100); Mean Corpuscular Hemoglobin 28.6 pg (27-31); Mean Corpuscular Hgb Conc 32.2 g/dl (32-36); Mean Platelet Volume 9.3 fl (8-12.5); Neutrophil % 65.2 % (42-75.0); Platelet Count 219 K/mm3 (150-450); Red Blood Count 3.43 M/mm3 (4.2-5.4); Red Cell Distribution Width 13.7 % (11.5-14.0); White Blood Count 6.2 K/mm3 (4.0-10.5)
--- NOTE | 2018-12-23 08:52 | PN ---
Dictated Progress Note - Date and Time Seen: Date: 12/23/18 Time: 08:51 - Progress Note Narrative: denies pain, no n/v. Didn't eat breakfast because she was tired. No abd pain Vital Signs - Last Taken Temp 36.8 C 12/23/18 06:35 Pulse 65 12/23/18 06:35 Resp 20 12/23/18 06:35 BP 141/71 12/23/18 06:35 Pulse Ox 96 12/23/18 06:35 Abnormal/Pending Laboratory Last 24 HRS 12/23/18 12/22/18 05:44 11:50 RBC 3.43 L 3.74 L Hgb 9.8 L 10.8 L Hct 30.4 L 32.4 L Immature Gran % (Auto) 0.50 H Lymphocytes # 1.45 L Culture 12/21/18 17:28 - Final Nares MRSA Negative NAD non labored skin warm and dry abd soft, non tender, non distended Imp: upper GI bleed likely from gastritis Plan: protonix let her rest and re-eval gen diet I do not think she is significantly bleeding further
--- NOTE | 2018-12-23 15:58 | DS ---
(1) Upper GI bleed Problem: Acute (2) Anemia due to acute blood loss Problem: Acute Description of Stay: Ashley Fowler is a 72-year-old female patient admitted through ER with bright red hematemesis. She had vomited blood at home and it did so again in the ER. An NG tube was placed. Following morning there is no bright red bleeding only coffee ground aspirate. She underwent upper endoscopy by Dr. Ferrer and she was found. specifically, the source of the bleeding was not visualized. her admission hemoglobin was 12.2 g which dropped to 9.8 g this morning. she has dropped 1 g from yesterday. stools were occult blood negative. she is weak and doesn't have much appetite. she really doesn't want to be discharged but she doesn't meet inpatient criteria. therefore she is willing to go home with help. Home health [id number]: Ashley is confined to home due to the need for limb strengthening, balance training, and endurance issues due to recent acute anemia secondary to GI blood loss. The need for long term's for medication management education and vital sign management. The need for physical therapy is for improving mobility, strength, and balance. The need for home health care long term service is directly related to the time spent in [id number] with the patient. Procedures Performed: see notes below - also placement of nasogastric tube. List Procedures: EGD Results and Findings: Lab Pending Results 12/21/18 16:03: WBC 10.9 H, RBC 4.30, Hgb 12.3 L, Hct 37.0, MCV 86.0, MCH 28.6, MCHC 33.2, RDW 13.3, Plt Count 334, MPV 9.1, Immature Gran % (Auto) 0.50 H, Immature Gran # (Auto) 0.06 H, Neutrophils % 76.3 H, Lymphocytes % 15.7 L, Monocytes % 7.0, Eosinophils % 0.2, Basophils % 0.3, Nucleated RBC % 0.0, Neutrophils # 8.3 H, Lymphocytes # 1.71, Monocytes # 0.8, Eosinophils # 0.0, Absolute Basophils 0.0 12/21/18 16:03: Sodium 142, Plasma Sodium 142, Potassium 2.8 L D, Chloride 107 H, Carbon Dioxide 26.8, Anion Gap 11.0, BUN 29 H D, Creatinine 1.67 H D, Est GFR (Non-Af Amer) 32 L D, BUN/Creatinine Ratio 17.4, Random Glucose 130 H, Calcium 8.4, Calcium Adj for Albumin 8.8, Magnesium 1.8, Total Bilirubin 0.4, AST 85 H, ALT 98 H, Alkaline Phosphatase 91, Troponin I 0.024, Total Protein 6.3, Albumin 3.1 L, Ethyl Alcohol Less than 3.0 12/21/18 16:03: PT 11.8 H, INR (Anticoag Therapy) 1.20 H, PTT ([place]) 21.2 L 12/21/18 22:10: WBC 8.7 D, RBC 3.97 L, Hgb 11.3 L, Hct 34.6 L, MCV 87.2, MCH 28.5, MCHC 32.7, RDW 13.2, Plt Count 283, MPV 9.4 12/21/18 : Stool Occult Blood Negative 12/22/18 05:00: WBC 7.4, RBC 3.76 L, Hgb 10.8 L, Hct 32.5 L, MCV 86.4, MCH 28.7, MCHC 33.2, RDW 13.3, Plt Count 267, MPV 9.3, Immature Gran % (Auto) 0.40, Immature Gran # (Auto) 0.03, Neutrophils % 67.6, Lymphocytes % 22.7, Monocytes % 8.7, Eosinophils % 0.3, Basophils % 0.3, Nucleated RBC % 0.0, Neutrophils # 5.0, Lymphocytes # 1.67, Monocytes # 0.6, Eosinophils # 0.0, Absolute Basophils 0.0 12/22/18 05:00: Sodium 143 H, Plasma Sodium 143 H, Potassium 3.5 D, Chloride 110 H, Carbon Dioxide 25.5, Anion Gap 11.0, BUN 56 H D, Creatinine 1.26, Est GFR (Non-Af Amer) 44 L D, BUN/Creatinine Ratio 44.4 H, Random Glucose 99, Calcium 8.1, Calcium Adj for Albumin 8.7, Total Bilirubin 0.3, AST 58 H, ALT 82 H, Alkaline Phosphatase 80, Total Protein 5.8 L, Albumin 2.8 L 12/22/18 11:50: WBC 6.9, RBC 3.74 L, Hgb 10.8 L, Hct 32.4 L, MCV 86.6, MCH 28.9, MCHC 33.3, RDW 13.4, Plt Count 258, MPV 9.1 12/22/18 15:00: Pathology Specimen Spec to path 12/23/18 05:44: WBC 6.2, RBC 3.43 L, Hgb 9.8 L, Hct 30.4 L, MCV 88.6, MCH 28.6, MCHC 32.2, RDW 13.7, Plt Count 219, MPV 9.3, Immature Gran % (Auto) 0.50 H, Immature Gran # (Auto) 0.03, Neutrophils % 65.2, Lymphocytes % 23.6, Monocytes % 7.5, Eosinophils % 2.9, Basophils % 0.3, Nucleated RBC % 0.0, Neutrophils # 4.0, Lymphocytes # 1.45 L, Monocytes # 0.5, Eosinophils # 0.2, Absolute Basophils 0.0 Discharge Location: Home Disposition: [facility] Agency: [facility] Condition: Fair Face to Face Encounter completed per CMS Guidelines: Yes Discharge Activity: Activity as tolerated Discharge Diet: General/regular food Referrals: Girish Butler DO [Primary Care Provider] - Additional Patient Instructions (free text): -Please make TCM appointment unless [facility] discharge. Thank you! Ivonne @ ext:[phone]. Fax discharge summary and orders to [facility], new patient. Check CBC in one week intervals 4 starting 1 week from today. Return to ER if GI bleeding resumes. Prescriptions (Any new or edited meds): Pantoprazole Sodium [Protonix] 40 mg PO DAILY #30 Complete Home Medications List: Complete Home Medication List: Cholecalciferol (Vitamin D3) [Vitamin D3] 2,000 unit PO DAILY 04/25/17 atorvastatin 10 mg tablet 10 mg PO HS #90 tab 04/29/18 venlafaxine ER 75 mg capsule,extended release 24 hr 75 mg PO DAILY #90 cap 05/16/18 ipratropium 20 mcg-albuterol 100 mcg/actuation mist for inhalation 1 inh IH QID #4 g 07/08/18 amlodipine 10 mg tablet 10 mg PO DAILY #30 tab 08/08/18 losartan 100 mg tablet 100 mg PO DAILY #30 tab 08/20/18 Clindamycin HCl [Cleocin HCl] 300 mg PO TID 10 Days #30 cap 12/16/18 Pantoprazole Sodium [Protonix] 40 mg PO DAILY #30 tablet. 12/23/18
[2018-12-23 17:12] VITALS: BP 179/78
== END 2018-12-23 17:05 | disposition home health service (06) ==
LOC: ER 15:35 → INTOOBSV 16:38 → MS 16:38
PROVIDERS: ADMIT Family Medicine; ATTEND Family Medicine
CPT/HCPCS: 36415; 71010; 71020; 71045; 71046; 74019; 74020; 80053; 80320; 82272; 83735; 84484; 85025; 85027; 85610; 85730; 87081; 88305; 88312; 88313; 93005; 96374; 96375; 99285; G0378; G0481; J2405